=== PATIENT | female | born 2000 | race Caucasian/White ===

== ENCOUNTER 2020-07-04 16:19 | Outpatient (REF) | payer MEDICAID, SELFPAY | END 2020-07-04 16:20 | disposition home or self-care (01) | LOC: HO.LAB 16:19 | PROVIDERS: Visit Provider Internal Medicine | DX: Z20.828 Contact with and (suspected) exposure to other viral communicable diseases (principal) | CPT/HCPCS: C9803; U0003 ==

== ENCOUNTER 2020-10-02 21:34 | Emergency (ER) | payer MEDICAID, SELFPAY ==
--- NOTE | ~2020-10-02 | CT_ITS ---
EXAMINATION: CT ABDOMEN AND PELVIS WITHOUT CONTRAST CLINICAL INFORMATION: Right lower quadrant pain. Rule out appendicitis. COMPARISON: None TECHNIQUE: Multidetector volumetric imaging was performed from the superior aspect of the liver through the pubic symphysis. Sagittal and coronal reformatted images were obtained on the technologist's workstation. This CT examination was performed using dose optimization techniques as appropriate, variously including the following: *Automated exposure control *Adjustment of mA and/or kV according to patient size (this includes techniques or standardized protocols for targeted exams where dose is matched to indication/reason for exam; i.e. extremities or head) *Use of iterative reconstruction technique DLP: 285 mGy-cm FINDINGS: LUNG BASES: The visualized lung bases are unremarkable. LIVER, GALLBLADDER, AND BILIARY TREE: The liver is normal in size, shape, and attenuation. No focal hepatic lesion or biliary ductal dilatation is present. The gallbladder is unremarkable with no evidence of radiopaque gallstones, gallbladder wall thickening, or obvious pericholecystic inflammatory changes. PANCREAS: Unremarkable. SPLEEN: Unremarkable. ADRENAL GLANDS: Unremarkable. KIDNEYS AND URETERS: The kidneys are normal in size, shape, and attenuation. No hydronephrosis, hydroureter, or calculi seen. No perinephric stranding. BLADDER: Unremarkable. GASTROINTESTINAL TRACT: The stomach is unremarkable. Normal caliber small bowel. No obstruction. There is a normal appendix. Questionable mild wall thickening of the descending colon. No significant adjacent inflammatory change. The remainder of the colon is unremarkable. Small amount of pelvic free fluid. ABDOMINAL WALL: No significant hernia is appreciated. LYMPH NODES: Normal. VASCULAR: Unremarkable. PELVIC VISCERA: Anteverted uterus with IUD in place. No adnexal mass. OSSEOUS STRUCTURES: Unremarkable. CT/CT abdomen pelvis wo con IMPRESSION: Normal appendix. Questionable mild wall thickening of the descending colon which may simply be secondary to decompression. This could represent mild colitis.
[2020-10-02 22:02] VITALS: BP 125/70; PULSE 89; RESP 18; TEMP 36.2; O2SAT 99; BMI 20.7
[2020-10-02 22:44] LABS: UPreg QC Valid YES; Urine Pregnancy NEGATIVE (NEGATIVE)
[2020-10-02 22:47] LABS: Glucose Urine UA NEG (NEG); Leukocyte Esterase Urine NEG (NEG); Nitrite Urine NEG (NEG); Specific Gravity - Urine 1.025 (1.005-1.025); Urine Blood 2+ (NEG); Urine Ketones >=80 MG/DL (NEG); Urine Protein NEG (NEG-TRACE)
[2020-10-02 22:48] LABS: Appearance Urine CLEAR; Color Urine YELLOW
[2020-10-02 23:10] LABS: Squamous Epithelial Cell Urine TRACE /LPF; WBC Urine 0-2 /HPF (0-4)
--- NOTE | 2020-10-02 23:12 | ED.GENADULT ---
HPI - General Adult General Chief complaint: Abdominal Pain Stated complaint: Abdominal Pain Time Seen by Provider: 10/02/20 22:30 Source: patient Mode of arrival: ambulatory Limitations: no limitations History of Present Illness HPI narrative: 20-year-old female who presents to the emergency department for evaluation of abdominal pain and vaginal bleeding. The patient states that she had an IUD placed in May of 2020. She states that she bled for 3 months after the IV was placed and she stop the bleeding in August of 2020. She states however over the past 1 and half weeks the bleeding has returned. She states that she is using feminine pads and she changes them frequently and she believes she is bleeding heavily. She states that over the past 3-4 days she has developed severe cramping in her lower abdomen. She states the pain is worse in her right lower quadrant and does radiate to her right back. She states the pain is 8/10 at its worst. She did not take any pain medications for the pain. She has had associated nausea and vomiting. She denied fever, chills, chest pain, shortness of breath. She states that 4 days prior she was diagnosed with urinary tract infection and was started on antibiotic and for Pyridium. Related Data Allergies Allergy/AdvReac Type Severity Reaction Status Date / Time pollen extracts [POLLEN] Allergy Unknown UNKNOWN Verified 10/02/20 23:32 shrimp Allergy Rash Verified 10/02/20 22:01 Review of Systems Review of Systems: Yes all other systems are reviewed and are negative Neurologic: Reports Abnormal speech present [facility] Past Medical History [facility] Narrative: The patient has a history of asthma, anxiety and depression. She states that she also gets episodes of hypoglycemia and hypotension. She denies any surgical procedures. She denies tobacco, alcohol and drug use. Medical History (Updated 10/03/20 @ 02:22 by Aram Russell MD) Asthma Social History Social History Alcohol intake: never Smoking Status: Never smoker Use of substances other than those prescribed or required for medical reasons: No Advance Directives: No Advance Directives Information Provided: No Physical Exam Vital Signs: Vital Signs: Last Vital Signs Temp 98.8 F 10/03/20 01:16 Pulse 62 10/03/20 01:16 Resp 18 10/03/20 01:16 BP 99/45 L 10/03/20 01:16 Pulse Ox 100 10/03/20 01:16 Body Mass Index 20.7 Const: General: cooperative and healthy appearing Nutritional Appearance: thin Orientation/consciousness: oriented to person and oriented to place Limitations: no limitations HENMT: Head: Yes normal to inspection, Yes normocephalic and Yes atraumatic Ears: external ears normal General nose exam: Normal external nose present Face and sinus: Yes normal facial exam Mouth: Normal oral and palatal mucosa present Throat: Yes posterior oropharynx normal Eyes: Periorbital: periorbital findings normal Eyelids: Yes eyelids normal Conjunctivae: conjunctivae normal Sclerae: sclerae normal Corneas: corneas normal Pupils: Equal, round and reactive pupils present Direct Ophthalmoscopy: normal light reflex Neck: Neck: Yes full ROM, Yes no lymphadenopathy, Yes no meningeal signs, Yes trachea midline and Yes supple Chest: Chest palpation & inspection: normal inspection of the chest and normal palpation of entire chest wall Resp: Effort & Inspection: normal respiratory effort and able to speak in complete sentences Auscultation: clear to auscultation bilaterally Cardio: Rate: regular rate Rhythm: regular rhythm Heart sounds: S1 normal heart sound present, S2 normal heart sound present and no murmurs GI: Inspection: Yes normal to inspection Palpation (GI): Soft to palpation, Tenderness to palpation present (GI) in the RUQ (Moderate) and suprapubicly ([id number]), no guarding, not rigid and No hepatosplenomegaly present : General: Yes no CVA tenderness Back/Spine/Pelvis: Back: no CVA tenderness Cervical Spine: normal cervical lordosis Thoracic/Lumbar Spine: thoracic and lumbar spine normal to inspection Skin: Lesions: no lesions Rashes: no rashes Wounds: no wounds Neuro: General: oriented to person, oriented to place and no meningeal signs Cranial nerves: Yes Equal, round and reactive pupils present Cognition (Neuro): normal cognition Speech: Abnormal speech present Motor exam (neuro): 5/5 motor strength present throughout Extrem: General: Yes normal to inspection and Yes full ROM Psych: Appearance: well kempt Mental Status: mental status grossly normal Speech and movement: Normal speech and movement present Affect: normal affect Attitude: cooperative Thought process: Normal thought process present Thought content: Normal thought content present Course Course Course Narrative: 20-year-old female with an IUD placed May 2020 who presents emergency department for evaluation of vaginal bleeding times 1-1/2 weeks and right lower quadrant and suprapubic pain. Patient does have significant tenderness with palpation of her suprapubic area and right lower quadrant. Concerned the patient may have acute appendicitis or injury to uterus from the IUD. I did order laboratory evaluation as well as a CT scan of the abdomen pelvis with IV contrast. Patient's pain will be treated with Toradol 30 mg IV, her nausea will be treated with Zofran 4 mg IV. I also ordered a L of normal saline IV for the patient. 0219: The patient's laboratory evaluation revealed a slight elevation of WBC of 11.2 otherwise was unremarkable. Urinalysis revealed 2+ blood but the patient is menstruating. The patient's serum test was negative. COVID-19 was negative. The patient's CT scan of the abdomen pelvis with IV contrast did not reveal a clear etiology for the patient's pain. The patient has IUD is in place in the uterus. At this time, I do not have a clear cause for the patient's pain but I did discuss the possibility of early appendicitis with the patient. The patient initially got minimal relief with her Toradol and required morphine 2 mg IV and morphine 4 mg IV and is pain-free at the time of discharge. Repeat abdominal exam reveals no abdominal tenderness. The patient will be discharged home with instructions to return in 24 hours if her pain is worse in any way to re-evaluate her for possible appendicitis. Medical Decision Making Lab Data Result diagrams: 10/02/20 23:26 10/02/20 23:26 Labs: Lab Results 10/02/20 10/02/20 10/02/20 Range/Units 22:31 23:26 23:26 WBC 11.2 H (4.8-10.8) X10*3/uL RBC 4.40 (4.20-5.50) X10*6/uL Hgb 14.1 (12.0-16.0) g/dl Hct 42.9 (37-47) % MCV 97.5 (80-98) fL MCH 32.0 (27.0-33.0) pg MCHC 32.9 (31.0-35.0) g/dl RDW 12.4 (11.0-16.0) % Plt Count 195 (160-400) X10*3/uL MPV 11.5 (9.4-12.3) fL Immature Gran % (Auto) 0.2 (0.0-0.4) % Neut % (Auto) 74.1 H (45-73) % Lymph % (Auto) 18.1 L (20-40) % [place] % (Auto) 5.6 (2-11) % Eos % (Auto) 1.8 (0-4) % Baso % (Auto) 0.2 (0-2) % Lymph # (Auto) 2.0 (1.2-4.9) X10*3/uL [place] # (Auto) 0.6 (0.1-1.2) X10*3/uL Eos # (Auto) 0.2 (0.0-0.4) X10*3/uL Baso # (Auto) 0.0 (0.0-0.2) X10*3/uL Abs Immat Gran (auto) 0.02 (0.00-0.03) X10*3/uL Absolute Neuts (auto) 8.3 (2.0-8.3) X10*3/uL Absolute Nucleated RBC 0.000 (0.0-0.012) X10*3/uL Nucleated RBC % (auto) 0.0 (0.0-0.2) /100WBC PT 12.8 (10.8-13.0) SEC INR 1.1 (0.9-1.1) APTT 37.7 (24.1-38.0) SEC Sodium (135-145) mmol/L Potassium (3.3-5.1) mmol/L Chloride (96-108) mmol/L Carbon Dioxide (22-29) mmol/L Anion Gap (12-20) BUN (9-16) mg/dL Creatinine (0.5-1.4) mg/dL Estim Creat Clear Calc Estimated GFR Random Glucose (60-115) mg/dL Calcium (8.4-10.2) mg/dL Total Bilirubin (0.0-1.0) mg/dL AST (5-31) U/L ALT (0-31) U/L Alkaline Phosphatase (39-117) U/L Total Protein (6.5-8.0) g/dL Albumin (3.5-5.0) g/dL Lipase (8-78) U/L Urine Color YELLOW Urine Appearance CLEAR Urine pH 6.0 (5.0-8.0) Ur Specific [place] 1.025 (1.005-1.025) Urine Protein NEG (NEG-TRACE) MG/DL Urine Glucose (UA) NEG (NEG) MG/DL Urine Ketones >=80 (NEG) MG/DL Urine Blood 2+ H (NEG) Urine Nitrite NEG (NEG) Ur Leukocyte Esterase NEG (NEG) Urine RBC 1-4 (0) /HPF Urine WBC 0-2 (0-4) /HPF Ur Squamous Epith Cells TRACE /LPF Urine Bacteria NONE /LPF Urine Test NEGATIVE (NEGATIVE) COVID-19 ([facility]) (Negative) COVID-19 Clin Com 10/02/20 10/02/20 Range/Units 23:26 23:26 WBC (4.8-10.8) X10*3/uL RBC (4.20-5.50) X10*6/uL Hgb (12.0-16.0) g/dl Hct (37-47) % MCV (80-98) fL MCH (27.0-33.0) pg MCHC (31.0-35.0) g/dl RDW (11.0-16.0) % Plt Count (160-400) X10*3/uL MPV (9.4-12.3) fL Immature Gran % (Auto) (0.0-0.4) % Neut % (Auto) (45-73) % Lymph % (Auto) (20-40) % [place] % (Auto) (2-11) % Eos % (Auto) (0-4) % Baso % (Auto) (0-2) % Lymph # (Auto) (1.2-4.9) X10*3/uL [place] # (Auto) (0.1-1.2) X10*3/uL Eos # (Auto) (0.0-0.4) X10*3/uL Baso # (Auto) (0.0-0.2) X10*3/uL Abs Immat Gran (auto) (0.00-0.03) X10*3/uL Absolute Neuts (auto) (2.0-8.3) X10*3/uL Absolute Nucleated RBC (0.0-0.012) X10*3/uL Nucleated RBC % (auto) (0.0-0.2) /100WBC PT (10.8-13.0) SEC INR (0.9-1.1) APTT (24.1-38.0) SEC Sodium 141 (135-145) mmol/L Potassium 3.9 (3.3-5.1) mmol/L Chloride 108 (96-108) mmol/L Carbon Dioxide 21 L (22-29) mmol/L Anion Gap 16 (12-20) BUN 9 (9-16) mg/dL Creatinine 0.70 (0.5-1.4) mg/dL Estim Creat Clear Calc 78.1 Estimated GFR > 60 Random Glucose 68 (60-115) mg/dL Calcium 8.9 (8.4-10.2) mg/dL Total Bilirubin 0.7 (0.0-1.0) mg/dL AST 18 (5-31) U/L ALT 13 (0-31) U/L Alkaline Phosphatase 58 (39-117) U/L Total Protein 7.5 (6.5-8.0) g/dL Albumin 4.8 (3.5-5.0) g/dL Lipase 8 (8-78) U/L Urine Color Urine Appearance Urine pH (5.0-8.0) Ur Specific [place] (1.005-1.025) Urine Protein (NEG-TRACE) MG/DL Urine Glucose (UA) (NEG) MG/DL Urine Ketones (NEG) MG/DL Urine Blood (NEG) Urine Nitrite (NEG) Ur Leukocyte Esterase (NEG) Urine RBC (0) /HPF Urine WBC (0-4) /HPF Ur Squamous Epith Cells /LPF Urine Bacteria /LPF Urine Test (NEGATIVE) COVID-19 ([facility]) Negative (Negative) COVID-19 Clin Com See Note Discharge Plan Discharge Clinical Impression: Abdominal pain Qualifiers: Abdominal location: right lower quadrant Qualified Code(s): R10.31 - Right lower quadrant pain Patient Disposition: Home, Self-Care Instructions: Acute Abdominal Pain (ED) Additional Instructions: Your laboratory evaluation was unremarkable. Your urine test was negative. Your COVID-19 test was negative[address] The CT scan of your abdomen pelvis with IV contrast revealed that the IUD is in your uterus and there is no injury to uterus noted. There was no clear cause for the abdominal pain noted on the CT scan which is reassuring. Sometimes early appendicitis is difficult to diagnose and it is still possible that you might have appendicitis. If your pain is not completely resolved in 24 hours then you should return to the emergency department so that we can re-evaluate you for possible appendicitis. Take ibuprofen 200 mg pills, 3 pills every 6 hours as needed for pain. Take Tylenol (acetaminophen) 500 mg pills, 2 pills every 4 to 6 hours as needed for pain. Follow-up with your doctor in 2 days. Please return to the emergency department if your symptoms get worse or if you develop any symptoms that are concerning to you.
[2020-10-02 23:28] VITALS: BP 114/60; PULSE 66; RESP 18; TEMP 37.1; O2SAT 100
[2020-10-02] MEDS: 0.9 % Sodium Chloride 1,000 ML 999 ML IV (23:32)
[2020-10-02] MEDS: ondansetron HCL 4 MG/2 ML VIAL IVPUSH (23:32)
[2020-10-02 23:33] LABS: MANUAL DIFF FLAG NO
[2020-10-02] MEDS: Ketorolac Tromethamine 30 MG/ML VIAL IVPUSH (23:33)
[2020-10-02 23:36] LABS: Basophils Percent Auto 0.2 % (0-2); Eosinophils Absolute Auto 0.2 X10*3/uL (0.0-0.4); Eosinophils Percent Auto 1.8 % (0-4); Hematocrit 42.9 % (37-47); Hemoglobin 14.1 g/dl (12.0-16.0); Imm Gran Abs Auto 0.02 X10*3/uL (0.00-0.03); Imm Gran Pct Auto 0.2 % (0.0-0.4); Lymphocytes Percent Auto 18.1 % (20-40); Mean Corpuscular HGB Conc 32.9 g/dl (31.0-35.0); Mean Corpuscular Volume 97.5 fL (80-98); Mean Platelet Volume 11.5 fL (9.4-12.3); Monocytes Absolute Auto 0.6 X10*3/uL (0.1-1.2); Monocytes Percent Auto 5.6 % (2-11); Neutrophils Absolute Auto 8.3 X10*3/uL (2.0-8.3); Neutrophils Percent Auto 74.1 % (45-73); Platelet Count 195 X10*3/uL (160-400); Red Cell Distribution Width 12.4 % (11.0-16.0); White Blood Count 11.2 X10*3/uL (4.8-10.8)
[2020-10-03] LABS: INTERNATIONAL NORM RATIO 1.1 (0.9-1.1); Prothrombin Time 12.8 SEC (10.8-13.0)
[2020-10-03 00:02] LABS: COVID-19 Test Negative (Negative)
[2020-10-03 00:03] LABS: Partial Thromboplastin Time 37.7 SEC (24.1-38.0)
[2020-10-03] MEDS: Morphine Sulfate 4 MG/ML CARTRIDGE 2 MG IVPUSH (00:21)
[2020-10-03 00:40] LABS: Alanine Aminotransferase 13 U/L (0-31); Albumin Level 4.8 g/dL (3.5-5.0); Alkaline Phosphatase 58 U/L (39-117); Anion Gap 16 (12-20); Aspartate Amino Transferase 18 U/L (5-31); Bilirubin Total 0.7 mg/dL (0.0-1.0); Blood Urea Nitrogen 9 mg/dL (9-16); Calcium 8.9 mg/dL (8.4-10.2); Carbon Dioxide 21 mmol/L (22-29); Chloride 108 mmol/L (96-108); Creatinine Clr Calc Pharmacy 78.1; Estimated Glomerular Filt Rate > 60; Glucose Random 68 mg/dL (60-115); Lipase 8 U/L (8-78); Potassium 3.9 mmol/L (3.3-5.1); Sodium 141 mmol/L (135-145); Total Protein 7.5 g/dL (6.5-8.0)
[2020-10-03 01:16] VITALS: BP 99/45; PULSE 62; RESP 18; TEMP 37.1; O2SAT 100
[2020-10-03] MEDS: Morphine Sulfate 4 MG/ML CARTRIDGE IVPUSH (01:20)
== END 2020-10-03 02:26 | disposition home or self-care (01) ==
PROVIDERS: Emergency Provider Emergency Medicine Emergency Medical Services
DX: R10.31 Right lower quadrant pain (principal); Z20.822 Contact with and (suspected) exposure to COVID-19; N93.9 Abnormal uterine and vaginal bleeding, unspecified
CPT/HCPCS: 36415; 74176; 80053; 81001; 81025; 83690; 85025; 85610; 85730; 87635; 96361; 96374; 96375; 96376; 99284; J1885; J2270; J2405

== ENCOUNTER 2022-11-27 16:48 | Emergency (ER) | payer MEDICAID, SELFPAY ==
[2022-11-27 17:10] VITALS: BP 121/68; PULSE 73; RESP 18; TEMP 36.6; O2SAT 98; BMI 21.6
--- NOTE | 2022-11-27 17:12 | ED.NAVMDI ---
HPI - Nausea/Vomiting/Diarrhea General Chief complaint: Nausea/Vomiting/Diarrhea Stated complaint: vomiting edc 12/2 Related Data Allergies Allergy/AdvReac Type Severity Reaction Status Date / Time pollen extracts [POLLEN] Allergy Unknown UNKNOWN Verified 11/27/22 17:10 shrimp Allergy Rash Verified 11/27/22 17:10 [facility] Past Medical History Medical History (Updated 12/06/22 @ 00:00 by Background Daemon) Asthma Social History Social History Alcohol intake: never Advance Directives: No Advance Directives Information Provided: No Physical Exam Vital Signs: Vital Signs: Last Vital Signs Temp 98 F 11/27/22 17:10 Pulse 73 11/27/22 17:10 Resp 18 11/27/22 17:10 BP 121/68 11/27/22 17:10 Pulse Ox 98 11/27/22 17:10 O2 Del Method Room Air 11/27/22 17:10 BMI result Body Mass Index 21.6 Course Course Course Narrative: rme Seven weeks , vomiting everything today, no abdominal pain, no bleeding no pelvic pain no diarrhea Basic labs ordered, evaluation in the department to follow Discharge Plan Discharge Clinical Impression: , Vomiting Patient Disposition: Elopement Discharge Date/Time: 11/27/22 18:20
== END 2022-11-27 18:20 | disposition left against medical advice (07) ==
PROVIDERS: Emergency Provider Emergency Medicine
DX: O21.9 Vomiting of pregnancy, unspecified (principal); Z3A.00 Weeks of gestation of pregnancy not specified
CPT/HCPCS: 99281

== ENCOUNTER 2024-09-29 13:07 | Emergency (ER) | payer MEDICAID, SELFPAY ==
[2024-09-29] VITALS (8 sets, daily range): BP systolic 109–124; BP diastolic 62–82; PULSE 57–81; RESP 13–20; TEMP 36.8–36.9; O2SAT 95–98; BMI 23.2
--- NOTE | 2024-09-29 13:09 | ECG_ITS ---
Test Reason : CP Blood Pressure : */* mmHG Vent. Rate : 65 BPM Atrial Rate : 65 BPM P-R Int : 114 ms QRS Dur : 84 ms QT Int : 374 ms P-R-T Axes : 31 43 20 degrees QTcB Int : 388 ms Sinus rhythm with marked sinus arrhythmia Otherwise normal ECG When compared with ECG of 04-Dec-2013 19:37, PREVIOUS ECG IS PRESENT Referred By: Generic ED Physician Electronically Signed By: REBA FARRELL MD
--- NOTE | 2024-09-29 13:35 | ED.GENADULT ---
HPI - General Adult General Chief complaint: Chest Pain Stated complaint: CP JAW PAIN Time Seen by Provider: 09/29/24 15:12 Source: patient and other (Significant other, Felix) Mode of arrival: ambulatory Limitations: no limitations History of Present Illness ED Provider: Dr. Aram Russell HPI narrative: 24-year-old female , history of gestational diabetes/preeclampsia 15 months , still breast-feeding who presents emergency department for evaluation of palpitations, intermittent chest pain, high blood pressure readings at home times weeks. Patient states that after she delivered her baby she was on labetalol 200 mg q.12 hours but when this medication ran out she never got a refill of her prescription. Patient states that she has been checking her blood pressures at home and her blood pressure can sometimes be as high as 142/110 and sometimes as low as 92/60. She states she checks these readings 3 times a day and she was not have any symptoms when she checks these readings. She also states that she has been having palpitations where she feels like her heart is beating rapidly and irregularly. She states that occasionally when she has a palpitations she will have pain in her left anterior chest that radiates to her neck, back and jaw. She states she will have associated hot flashes, nausea and sweatiness with the palpitations. She denied lightheadedness or dizziness. She was had no syncopal episodes associated with her palpitations. Patient states that yesterday she went to [facility] and was in the emergency department but left after 6 hours. She was called and advised to follow-up with [facility]. At [facility] patient had an incomplete bundle-branch block, was given aspirin 324 mg orally and sent to the emergency department for further evaluation. At the time my evaluation, the patient was pain-free, she has no complaints. Related Data Previous Rx's ?Medication ?Instructions ?Recorded labetalol 200 mg tablet 200 mg PO BID 90 days #180 tabs 09/29/24 Allergies Allergy/AdvReac Type Severity Reaction Status Date / Time pollen extracts [POLLEN] Allergy Unknown UNKNOWN Verified 09/29/24 13:39 latex Allergy Rash Verified 09/29/24 13:39 shellfish derived [shellfish] Allergy Anaphylaxis Verified 09/29/24 13:39 shrimp Allergy Rash Verified 09/29/24 13:39 Review of Systems Review of Systems: Yes all other systems are reviewed and are negative [facility] Past Medical History Medical History (Updated 09/29/24 @ 18:33 by Aram Russell MD) Asthma Social History Social History Alcohol intake: never Advance Directives: No Advance Directives Information Provided: No Do you have a plan to hurt others: No Plan Physical Exam ED Vital Signs: Vital Signs - 24 hr 09/29/24 13:33 09/29/24 16:19 09/29/24 16:22 Temperature 98.2 F Pulse Rate 64 60 60 Respiratory Rate 18 13 Blood Pressure 118/82 123/65 123/65 Pulse Oximetry 98 Oxygen Delivery Method Room Air 09/29/24 16:23 09/29/24 16:23 Temperature Pulse Rate 65 60 Respiratory Rate Blood Pressure 113/62 114/68 Pulse Oximetry Oxygen Delivery Method BMI result Body Mass Index 23.2 Documented vital signs here in the emergency department revealed no elevated blood pressures, normal heart rates. Exam: General: Awake, alert in no distress Head: Normocephalic, atraumatic EENT: PERRL, Lids normal, sclera normal, conjunctiva normal, nose normal , ears normal, throat without erythema or exudates Neck: Supple, no adenopathy Lung: breath sounds symmetric, no wheezing, rales or rhonchi Chest: symmetric movement, nontender Heart: regular rate and rhythm, normal S1, S2 no murmurs or rubs Abdomen: soft, non-tender, nondistended, normal bowel sounds Back: no vertebral tenderness, no CVAT Extremities: no deformities, moves all extremities symmetrically Neuro: Awake, alert, oriented, normal speech, cranial nerves intact, moves all extremities symmetrically Psych: Pleasant, cooperative Course Course Course Narrative: RME performed by Kelsy Carlos PA-C. Patient is a 24 year old assigned female at presenting to the emergency department with fluctuating blood pressure. Patient states she has been having issues with spiking and tanking blood pressure. Patient states that she was seen at the clinic today and told her EKG looked normal so she needed to come to the ER. Detailed physical exam and review of systems are deferred to the hospital corpsman. EKG, labs, imaging, and swabs ordered. Patient placed back in the waiting room pending room availability and results. Medical Decision Making Medical Decision Making MDM Narrative: 24-year-old female , history of gestational diabetes/preeclampsia 15 months , still breast-feeding who presents emergency department for evaluation of palpitations, intermittent chest pain, high blood pressure readings at home times weeks. Patient was initially treated with labetalol 200 mg b.i.d. but never got a refill he was medications. She was documented elevated blood pressures at home he was high as 142/110 which is also documented normal blood pressures. Patient has been experiencing palpitations not related to her elevated blood pressure readings. Patient was also been having anterior chest pain with pain radiating to her neck, jaw and back. Patient went to [facility] ED yesterday but was not seen but it was contacted today and advised to follow up with [facility]. Given the patient's symptoms, and her EKG which revealed an incomplete bundle-branch block, she was referred to the emergency department for evaluation. At the time of evaluation she had no elevated blood pressure readings or elevated heart rate. She was asymptomatic. Physical examination was normal. Differential diagnosis: ?Includes but is not limited to essential hypertension, palpitations, myocardial infarction, myocardial ischemia, electrolyte abnormalities, anemia Course: 16:49 My interpretation the patient's laboratory evaluation is as follows: CBC was normal. Chloride elevated 112. Bicarb low 21. High sensitive troponin I was below detectable limits. COVID-19, RSV and influenza were negative. Beta-hCG was negative. At this time, I believe that the patient may have essential hypertension verses gestational hypertension. Patient is 15 months and I do not think this is related to her preeclampsia. The patient will be started back on labetalol 200 mg q.12 hours, I did give her a 90 day supply. She was to check your blood pressures 3 times a week for the next 2 weeks and follow up with her PCP to discuss further management of possible essential hypertension Patient will need a outpatient workup for her palpitations and I did discuss this with her. The patient will be referred back to her PCP for management of her hypertension and for outpatient workup to possibly include 72 hour Holter monitor and echocardiogram. Patient was given printed and verbal instructions and discharged home. Admission/Observation Consideration of admission/observation: Escalation of care including admission/observation considered (Yes) Lab Data MDM Lab Attestation statement: I reviewed the patient's lab results. 09/29/24 13:46 09/29/24 13:46 Labs: Lab Results 09/29/24 Range/Units 13:46 WBC 8.2 (4.8-10.8) X10*3/uL RBC 4.52 (4.20-5.50) X10*6/uL Hgb 14.0 (12.0-16.0) g/dl Hct 42.7 (37.0-47.0) % MCV 94.5 (80.0-98.0) fL MCH 31.0 (27.0-33.0) pg MCHC 32.8 (31.0-35.0) g/dl RDW 13.2 (11.0-16.0) % Plt Count 216 (160-400) X10*3/uL MPV 11.3 (9.4-12.3) fL Immature Gran % (Auto) 0.4 (0.0-0.4) % Neut % (Auto) 67.1 (45-73) % Lymph % (Auto) 22.0 (20-40) % Lipscomb % (Auto) 6.1 (2-11) % Eos % (Auto) 4.0 (0-4) % Baso % (Auto) 0.4 (0-2) % Lymph # (Auto) 1.8 (1.2-4.9) X10*3/uL Lipscomb # (Auto) 0.5 (0.1-1.2) X10*3/uL Eos # (Auto) 0.3 (0.0-0.4) X10*3/uL Baso # (Auto) 0.0 (0.0-0.2) X10*3/uL Abs Immat Gran (auto) 0.03 (0.00-0.03) X10*3/uL Absolute Neuts (auto) 5.5 (2.0-8.3) x10*3/uL Absolute Nucleated RBC 0.000 (0.0-0.012) X10*3/uL Nucleated RBC % (auto) 0.0 (0.0-0.2) /100WBC Sodium 141 (135-145) mmol/L Potassium 4.2 (3.3-5.1) mmol/L Chloride 112 H (96-108) mmol/L Carbon Dioxide 21 L (22-29) mmol/L Anion Gap 12 (12-20) BUN 11 (9-16) mg/dL Creatinine 0.65 (0.5-1.4) mg/dL Estim Creat Clear Calc 94.1 Estimated GFR > 60 Random Glucose 88 (60-115) mg/dL Calcium 8.8 (8.4-10.2) mg/dL Magnesium 2.1 (1.6-2.6) mg/dL Total Bilirubin 0.4 (0.0-1.0) mg/dL AST 18 (5-31) U/L ALT 14 (0-31) U/L Alkaline Phosphatase 102 (39-117) U/L Troponin I High Sens < 2.7 (<3.5-17.0) ng/L Total Protein 7.8 (6.5-8.0) g/dL Albumin 4.4 (3.5-5.0) g/dL Beta HCG, Quant < 2 mIU/mL Influenza Type A (PCR) NEGATIVE (Negative) Influenza Type B (PCR) NEGATIVE (Negative) RSV RNA Qual (PCR) NEGATIVE (Negative) SARS-CoV-2 RNA (RT-PCR) NEGATIVE (Negative) Independent Interpretation I performed an independent interpretation of an: EKG Interpretation: My independent interpretation patient's 12 EKG done at 13:16 hours is as follows: Normal sinus rhythm rate of 65, normal IA interval, QRS duration QTC interval, no ST segment elevation, no ST segment depression, no significant T-wave abnormalities compared to previous EKG dated 12/04/2013 at 19:37 hours, the patient did have a right bundle-branch block which is now resolved. Independent Historian Clinical information obtained from an independent historian. History obtained from or confirmed by: Spouse (Significant other) Prescription Management I considered prescription management with: Other (Antihypertensive, labetalol 200 mg q.12 hours) Chronic Conditions Patient?s care impacted by: Hypertension Discharge Plan Discharge Clinical Impression: Hypertension, Heart palpitations Patient Disposition: Home, Self-Care Instructions: Heart Palpitations (ED) Additional Instructions: Your blood work was normal. Your blood test was negative. Your high sensitive troponin (marker of heart damage) was below detectable limits suggesting that you do not have any heart damage your heart attack as the cause of your chest pain. Based on your description of your high blood pressure readings at home, I am going to restart you on labetalol 200 mg twice a day. I want you to stay on this medication for 3 months and then discuss whether or not you can stop this medication with your doctor. I want you to take your blood pressure readings on Mondays, Wednesdays and Tuesday mornings, write these blood pressure readings down, do not repeat them again throughout the day, and do not worry about any high blood pressure readings. The goal of documenting your blood pressure is to show your doctor whether or not you have high blood pressure while your on these medications. I want you to follow up with your doctor in 2 weeks to review these blood pressure readings with your doctor to determine if you need to change your blood pressure medication. Your EKG today was unremarkable with no significant abnormalities. In 2013 you did have a incomplete right bundle-branch block-this is not a significant finding and sometimes you can go in and out of this and this is normal., an incomplete right bundle-branch block is not related to your chest pain or to your palpitations. In order to figure out your palpitations, your doctor needs to order a Holter monitor for 48-72 hours. This is a monitor that will record your heart rate and you also will have a diary to write down when you feel the palpitations to see if you have abnormal heart rates while you are feeling the symptoms. Your doctor may also want to order an echocardiogram (ultrasound of your heart) to further evaluate you for possible palpitations. Call your doctor on Tuesday to make a follow-up appointment within 2 days to talk about your palpitations, to get a Holter monitor and possibly an echocardiogram as an outpatient. You can also discuss the plan to treat your high blood pressure with your doctor at this follow up with visit as well. Follow-up with your doctor in 2 days. Please return to the emergency department if your symptoms get worse or if you develop any symptoms that are concerning to you. Prescriptions: New labetalol 200 mg tablet 200 mg PO BID 90 Days Qty: 180 0RF Print Language: Citizen [place]
[2024-09-29 13:50] LABS: MANUAL DIFF FLAG NO
[2024-09-29 14:03] LABS: Basophils Percent Auto 0.4 % (0-2); Eosinophils Absolute Auto 0.3 X10*3/uL (0.0-0.4); Hematocrit 42.7 % (37.0-47.0); Imm Gran Abs Auto 0.03 X10*3/uL (0.00-0.03); Imm Gran Pct Auto 0.4 % (0.0-0.4); Lymphocytes Absolute Auto 1.8 X10*3/uL (1.2-4.9); Mean Corpuscular HGB Conc 32.8 g/dl (31.0-35.0); Mean Corpuscular Volume 94.5 fL (80.0-98.0); Mean Platelet Volume 11.3 fL (9.4-12.3); Monocytes Absolute Auto 0.5 X10*3/uL (0.1-1.2); Monocytes Percent Auto 6.1 % (2-11); Neutrophils Absolute Auto 5.5 x10*3/uL (2.0-8.3); Neutrophils Percent Auto 67.1 % (45-73); Platelet Count 216 X10*3/uL (160-400); Red Blood Count 4.52 X10*6/uL (4.20-5.50); Red Cell Distribution Width 13.2 % (11.0-16.0); White Blood Count 8.2 X10*3/uL (4.8-10.8)
[2024-09-29 14:18] LABS: Troponin-I High Sensitivity < 2.7 ng/L (<3.5-17.0)
[2024-09-29 14:22] LABS: Alanine Aminotransferase 14 U/L (0-31); Albumin Level 4.4 g/dL (3.5-5.0); Anion Gap 12 (12-20); Aspartate Amino Transferase 18 U/L (5-31); Bilirubin Total 0.4 mg/dL (0.0-1.0); Blood Urea Nitrogen 11 mg/dL (9-16); Calcium 8.8 mg/dL (8.4-10.2); Carbon Dioxide 21 mmol/L (22-29); Chloride 112 mmol/L (96-108); Creatinine Clr Calc Pharmacy 94.1; Estimated Glomerular Filt Rate > 60; Glucose Random 88 mg/dL (60-115); HCG Quantitative < 2 mIU/mL; Magnesium 2.1 mg/dL (1.6-2.6); Potassium 4.2 mmol/L (3.3-5.1); Sodium 141 mmol/L (135-145); Total Protein 7.8 g/dL (6.5-8.0)
[2024-09-29 14:30] LABS: Influenza A PCR NEGATIVE (Negative); Influenza B PCR NEGATIVE (Negative); Resp Syncy Virus RNA Qual PCR NEGATIVE (Negative); SARS COV2 PCR INHOUSE NEGATIVE (Negative)
[2024-09-29 14:53] LABS: Alkaline Phosphatase 102 U/L (39-117)
--- OUTSIDE RECORDS SUMMARY | 2024-09-29 16:38 | XMS_ITS | Encounter Summary ---
Author Organization [employer] Address [address] [facility] [address] [place] [address] Care Team Providers Care Rn Acute Name Role Phone Fannie Ferrell JASON Primary Care Provider [phone] Encounter Details Date Type Department Care Team ([facility] st Contact Info) Description 09/29/2024 Telephone [facility] MEDICINE [address] [place] [address] Naa Kern, RN [address] [place] [address] Social History Tobacco Use Types Packs/Day Years Used Date Smoking Tobacco: Never Passive Smoke Exposure: Never Smokeless Tobacco: Never Alcohol Use Standard Drinks/Week Comments Never 0 (1 standard drink = 0.6 oz pur e alcohol) Depression Answer Date Recorded Patient Health Questionnaire-9 Score 0 10/19/2023 Patient Health Questionnaire-9 Score 0 10/19/2023 Last PHQ-9: Questionnaire Data Not on file 0 10/19/2023 Housing Stability Answer Date Recorded What is your housing situation today? I have antwan segal 05/31/[address] you li ve. Do you have problems with any of the following? None of the above 05/31/2023 Food Insecurity Answer Date Recorded Within the past 12 months, y ou worried that your food would run out before you got money to buy more: Never True 05/31/2023 Within the past 12 months,th e food you bought just didn't last and you didn't have enough money to get more: Never True Transportation Answer Date Recorded In the past 12 months, has l ack of transportation kept you from medical appts, meetings, work or from getting things needed for daily living? No 08/04/2023 Utilities Answer Date Recorded In the past 12 months, has t he electric, gas, oil or water company threatened to shut off services in your home? No 05/31/2023 Depression Answer Date Recorded Patient Health Questionnaire-2 Score 0 10/19/2023 Comments No Sex and Gender Information Value Date Recorded Sex Assigned at Female 06/14/2022 10:16 AM EDT Legal Sex Female 10:16 AM EDT Gender Identity Female 06/14/2022 10:16 AM EDT Sexual Orientation Straight 06/14/2022 10 :16 AM EDT documented as of this encounter Plan of Treatment Not on file documented as of this encounter Visit Diagnoses Not on filedocumented in this encounter Additional Health Concerns Assessment Noted Time PHQ-9 Depression Total Score: 0 10/19/19 24 3:23 PM EST documented as of this encounter Care Teams Rn Acute Relationship Specialty Start Date End Date Fannie Ferrell FNP [address] [place] [id number] PCP - General Family Medicine 01/21/22 documented as of this encounter
--- OUTSIDE RECORDS SUMMARY | 2024-09-29 16:38 | XMS_ITS | Encounter Summary ---
Author Organization [employer] Address [address] [facility] [address] [place] [address] Care Team Providers Care Certified Medical Biller Name Role Phone Fannie Ferrell Primary Care Provider [phone] Reason for Visit * Reason Onset Date Comments Nurse Triage 01/31/2024 Encounter Details Date Type Department Care Team ([facility] st Contact Info) Description 01/31/2024 Telephone [facility] MEDICINE [address] [place] [address] Fannie Ferrell FNP [address] [place], [place] [phone] Nurse Triage Social History Tobacco Use Types Packs/Day Years Used Date Smoking Tobacco: Never Smokeless Tobacco: Never Alcohol Use Standard Drinks/Week Comments Never 0 (1 standard drink = 0.6 oz pur e alcohol) Depression Answer Date Recorded Patient Health Questionnaire-9 Score 0 10/19/2023 Patient Health Questionnaire-9 Score 0 10/19/2023 Last PHQ-9: Questionnaire Data Not on file 0 10/19/2023 Housing Stability Answer Date Recorded What is your housing situation today? I have antwanangie segal 05/31/[address] you [...] AM EDT documented as of this encounter Miscellaneous Notes * Telephone Encounter - Caterina Jaime RN - 01/31/2024 12:58 PM EDT Triage call Pt reports moved recently, and in the process lost BP machine. Pt had been monitoring BP and taking medication for HTN. Pt has had recent concerns about some heart palpatations with transient chest pain. Pt is not having these symptoms at time of call. Pt would like to be seen by provider and check BP and obtain another blood pressure machine. Pt is advised to come to [facility] where Provider can check BP and assess Pt status. [facility] hours given today open till 8pm, closed Wed, open Th-F 830am -400pm. Pt agreed with disposition and home care. When partner comes home to take care of baby Ptwill come to [facility]. Protocol Used: Heart Rate and Heartbeat Questions (Adult) Protocol-Based Disposition: Home Care Positive Triage Question: * Palpitations * All higher-acuity triage questions were negative Care Advice Discussed: * Reassurance and Education - Extra Heartbeats * Reassurance and Education - Extra Heartbeats and Palpitations * Health Basics * Avoid Caffeine * Reasons To Call Back - Chest pain, lightheadedness, or difficulty breathing occurs - Heart beating more than 140 beats / minute - More than 3 extra or skipped beats / minute - You become worse * Telephone Encounter - You Kimball - 01/31/2024 12:36 PM EDT Symptom: Chest Pain - Adult Outcome: Transfer to a nurse or provider NOW! Reason: Trouble breathing The caller accepted this outcome documented in this encounter Plan of Treatment Not on file documented as of this encounter Visit Diagnoses Not on filedocumented in this encounter Additional Health Concerns Assessment Noted Time PHQ-9 Depression Total Score: 0 10/19/19 24 3:23 PM EST documented as of this encounter Care Teams Certified Medical Biller Relationship Specialty Start Date End Date Fannie Ferrell FNP [address] [place] [id number] PCP - General Family Medicine 01/21/22 Jacey Jane Oxygen Equipment Preparer 08/22/23 06/28/24 documented as of this encounter
--- OUTSIDE RECORDS SUMMARY | 2024-09-29 16:38 | XMS_ITS | Encounter Summary ---
Author Organization [employer] Address [address] [facility] [address] [place] [address] Care Team Providers Care Manager Of Compliance Name Role Phone Fannie Ferrell Primary Care Provider [phone] Reason for Referral * Consultation (Routine) - Closed Specialty Diagnoses / Procedures Referred By Mariana stanford Referred To Contact Optometry Diagnoses Healthcare maintenance Fannie Ferrell FNP [address] [place] [address] Phone: tel: fax: [facility] OPTOMETRY [address] [place] [address] Phone: tel: fax: Referral ID Status Reason Start Date Expiration Date V isits Requested Visits Authorized [id number] Closed Consult and Treat 12/13/2023 12/12/2024 1 1 Reason for Visit * Reason Onset Date Comments Referral 12/12/2023 Encounter Details Date Type Department Care Team (Late st Contact Info) Description 12/12/2023 Telephone [facility] MEDICINE [address] [place] [address] Fannie Ferrell FNP [address] [place] [address] Referral Social History Tobacco Use Types Packs/Day Years [...] t he electric, gas, oil or water [email or web address] threatened to shut off services in your [...] encounter Miscellaneous Notes * Telephone Encounter - Wing Vaishnavi RN - 12/13/2023 12:51 PM EDT Tc to pt to inform pt about referral being placed and to ask if she has any current vision issues. Unable to reach pt. Left message for pt to call back. * Telephone Encounter - JASON Harper - 12/13/2023 12:22 PM EDT Please call pt to let her know that I placed referral to [facility], but they currently have a wait list that is scheduling in fall or winter of 2023. If she has any current vision concerns please have her call to be triaged sooner ,Thank you. * Telephone Encounter - Westley Anderson - 12/12/2023 12:14 PM EDT TC from pt requesting new referral: Address: [address] [place] [address] Facility Name: [facility] Type of Specialist: Bark Scaler documented in this encounter Plan of Treatment Scheduled Referrals Name Type Priority Associated Diagnoses Orde r Schedule Referral to [facility] Outpatient Referral Routine Healthcare maintenance Expected: 12/13/2023 (Approximate), Expires: 12/12/2024 documented as of this encounter Visit Diagnoses Diagnosis Healthcare maintenance- Primary documented in this encounter Additional Health Concerns Assessment Noted Time PHQ-9 Depression Total Score: 0 10/19/19 24 3:23 PM EST documented as of this encounter Care Teams Manager Of Compliance Relationship Specialty Start Date End Date Fannie Ferrell FNP [address] [place] [id number] PCP - General Family Medicine 01/21/22 Jacey Jane Insurance Office Supervisor 08/22/23 06/28/24 documented as of this encounter
--- OUTSIDE RECORDS SUMMARY | 2024-09-29 16:38 | XMS_ITS | Encounter Summary ---
Author Organization [employer] Address [address] [facility] 7[address] [place] [address] Care Team Providers Care Teenage Babysitter Name Role Phone Fannie Ferrell JASON Primary Care Provider [phone] Reason for Referral * Consultation (Routine) - Pending Review Specialty Diagnoses / Procedures Referred By Mariana stanford Referred To Contact Cardiology Diagnoses Precordial pain Palpitations Reynold Aburto MD [address] [place] [address] Phone: tel: fax: Referral ID Status Reason Start Date Expiration Date Visits Requested Visits Authorized [id number] Pending Review Specialty Services Required 09/29/2024 09/29/2025 1 1 Reason for Visit * Reason Comments Walk-In high bp palpitations x3 weeks Encounter Details Date Type Department Care Team (Late st Contact Info) Description 09/29/2024 12:00 PM EST Office Visit [facility] [address] [place], [place] [phone] Reynold Aburto MD [address] [place], [place] [phone] Precordial pain (Primary Dx); Palpitations Social History Tobacco Use Types Packs/Day Years Used Date Smoking Tobacco: Never Passive Smoke Exposure: Never Smokeless Tobacco: Never Tobacco Cessation:Counseling Given: Not Answered Alcohol Use Standard Drinks/Week Comments Never 0 [...] AM EDT documented as of this encounter Last Filed Vital Signs Vital Sign Reading Time Taken Comments Blood Pressure 134/83 09/29/2024 12:10 PM EST Pulse 83 09/29/2024 12:10 PM EST Temperature 36.6 ??C (97.9 ??F) 09/29/2024 12:[address] Respiratory Rate 20 09/29/2024 12:10 PM EST Oxygen Saturation 97% 09/29/2024 12:10 PM EST Inhaled Oxygen Concentration - - Weight 50.6 kg (111 lb 9.6 oz) 09/29/2024 12:10 PM EST Height 144.8 cm (4' 9 ) 09/29/2024 12:10 PM EST Body Mass Index 24.15 09/29/2024 12:10 PM EST documented in this encounter Progress Notes * Reynold Kimball MD - 09/29/2024 12:00 PM EST SUBJECTIVE Aj Ho is a 24 y.o. female who presents for Walk-In (high bp palpitations x3 weeks). Chest Pain This is a new problem. The current episode started in the past 7 days. The problem occurs intermittently. The pain is at a severity of 5/10. The quality of the pain is described as pressure. The painradiates to the precordial region, left jaw and left shoulder. Associated symptoms include palpitations and shortness of breath. Pertinent negatives include no abdominal pain, cough, fever or headaches. She has tried nothing for the symptoms. There are no known risk factors. Review of Systems Constitutional: Negative for fever. HENT: Negative for sore throat. Respiratory: Positive for shortness of breath. Negative for cough. Cardiovascular: Positive for chest pain and palpitations. Gastrointestinal: Negative for abdominal pain. Neurological: Negative for headaches. Allergies Allergen Reactions Latex Other reaction(s): Acne Shellfish-Derived Products Hives OBJECTIVE Vitals: 09/29/24 1210 BP: 134/83 BP Location: Right arm Patient Position: Sitting BP Cuff Size: Adult Pulse: 83 Resp: 20 Temp: 97.9 ??F (36.6 ??C) TempSrc: Temporal SpO2: 97% Weight: 111 lb 9.6 oz (50.6 kg) Height: 4' 9 (1.448 m) Physical Exam Vitals reviewed. Constitutional: Appearance: Normal appearance. HENT: Head: Normocephalic and atraumatic. Right Ear: External ear normal. Left Ear: External ear normal. Nose: Nose normal. Mouth/Throat: Mouth: Mucous membranes are moist. Eyes: Conjunctiva/sclera: Conjunctivae normal. Cardiovascular: Rate and Rhythm: Normal rate and regular rhythm. Pulmonary: Effort: Pulmonary effort is normal. Breath sounds: Normal breath sounds. Skin: General: Skin is warm. Neurological: Mental Status: She is alert. Mental status is at baseline. Assessment/Plan Problem List Items Addressed This Visit Precordial pain - Primary 24 yr old female with c/o palpitations associated with left sided chest pain, pressure 5-6/10 radiates into her jaw and her shoulder and sob. Pmhx significant for preeclampsia. ECG today shows sinus arrhythmia with incomplete RBBB. Chest pain is not reproducible. Given symptoms and no previous ECG to compare to, will need to transport via ambulance to the ER for further evaluation. At a minimum, will need a chest x- ray, D-Dimer, and serial troponin's. Will also place a cardiology referral for outpatient evaluation given ECG findings, that will require at least an ECHO Relevant Orders ECG 12 lead ECG 12 lead (Completed) Referral to Cardiology Palpitations Relevant Orders ECG 12 lead Referral to Cardiology documented in this encounter Miscellaneous Notes * Assessment & Plan Note - Reynold Kimball MD - 09/29/2024 12:47 PM EST Associated Problem(s): Precordial pain 24 yr old female with c/o palpitations associated with left sided chest pain, pressure 5-6/10 radiates into her jaw and her shoulder and sob. Pmhx significant for preeclampsia. ECG today shows sinus arrhythmia with incomplete RBBB. Chest pain is not reproducible. Given symptoms and no previous ECG to compare to, will need to transport via ambulance to the ER for further evaluation. At a minimum, will need a chest x- ray, D-Dimer, and serial troponin's. Will also place a cardiology referral for outpatient evaluation given ECG findings, that will require at least an ECHO documented in this encounter Plan of Treatment Scheduled Orders Name Type Priority Associated Diagnoses Orde r Schedule ECG 12 lead ECG Routine Precordial pain Palpitations Ordered: 09/29/2024 Scheduled Referrals Name Type Priority Associated Diagnoses Order Schedule Referral to Cardiology Outpatient Referral Routine Precordial pain Palpitations Expected: 09/29/2024 (Approximate), Expires: 09/29/2025 documented as of this encounter Procedures Procedure Name Priority Date/Time Associated Diagnosis Comments ECG 12-LEAD Routine 09/29/2024 12:42 PM EST Precordial pain documented in this encounter Results * ECG 12 lead (09/29/2024 12:42 PM EST) Narrative Reynold Aburto MD - 09/29/2024 12:42 PM EST Sinus arrhythmia, HR 68 bpm, rSr V2-V3 us Reynold Kimball MD ECG ORDERABLES Final Result documented in this encounter Visit Diagnoses Diagnosis Precordial pain- Primary Palpitations documented in this encounter Additional Health Concerns Assessment Noted Time PHQ-9 Depression Total Score: 0 10/19/19 24 3:23 PM EST documented as of this encounter Care Teams Teenage Babysitter Relationship Specialty Start Date End Date Fannie Ferrell FNP [address] [place] [address] PCP - General Family Medicine 01/21/22 documented as of this encounter
--- OUTSIDE RECORDS SUMMARY | 2024-09-29 16:38 | XMS_ITS | Encounter Summary ---
Author Organization [employer] Address [address] [facility] 7[address] [place] [address] Care Team Providers Care Third Rigger Name Role Phone Fannie Ferrell Primary Care Provider Reason for Visit * Reason Onset Date Comments Call Back Request 01/03/2024 Encounter Details Date Type Department Care Team ([facility] Contact Info) Description 01/03/2024 Telephone [facility] [address] [place], [place] [phone] Fannie Ferrell FNP [address] [place], [place] [phone] Call Back Request Social History Tobacco Use Types Packs/Day Years [...] encounter Miscellaneous Notes * Telephone Encounter - Shelly Christensen - 01/03/2024 11:04 AM EDT Tc from pt requesting to speak with a nurse in regards to Depo injection. Pt states injection causes for her to produce less breast milk and would like to discuss any alternatives. Please contact pt at [phone] documented in this encounter Plan of Treatment Not on file documented as of this encounter Visit Diagnoses Not on filedocumented in this encounter Additional Health Concerns Assessment Noted Time PHQ-9 Depression Total Score: 0 10/19/19 24 3:23 PM EST documented as of this encounter Care Teams Third Rigger Relationship Specialty Start Date End Date Fannie Ferrell FNP [address] [place] [address] PCP - General Family Medicine 01/21/22 Jacey Jane Aircraft [employer] Controls Mechanic 08/22/23 06/28/24 documented as of this encounter
--- OUTSIDE RECORDS SUMMARY | 2024-09-29 16:38 | XMS_ITS | Clinical Summary ---
Author Organization [employer] Address [address] [facility] [address] [place] [address] Care Team Providers Care Refrigeration Engineering Teacher Name Role Phone Fannie Ferrell JASON Primary Care Provider [phone] Allergies Active Allergy Reactions Criticality Noted Date Comments Latex 09/03/2020 Other reaction(s): Acne Shellfish-Derived Products Hives 1 Medications budesonide-formot rahel (Symbicort) 80-4.5 MCG/ACT inhalerIndication s:Mild persistent asthma without complication Inhale 2 puffs twie daily. Rinse mouth with water after use to reduce aftertaste and incidence of candidiasis. Do not swallow. 1 each 11 09/21/19 23 Active EPINEPHrine (Epipen) 0.3 MG/0.3ML injection syringeIndication s:History of multiple allergies Inject 0.3 mL (0.3 mg) as directed 1 (one) time for 1 dose. use as directed for allergic reaction and then call 911 2 each 1 10/05/19 23 Active albuterol (2.5 MG/3ML) 0.083% nebulizer solutionIndicatio ns:Mild persistent asthma without complication Take 3 mL (2.5 mg) by nebulization every 4 (four) hours if needed for wheezing or shortness of breath. 75 mL 3 10/05/19 23 Active labetalol (Normodyne) 200 MG tabletIndications : hypertension Take 1 tablet by mouth 2 times daily. 07/05/20 23 Active medroxyPROGESTERo ne (Depo-Provera) 150 MG/ML injectionIndicati ons:On Depo-Provera for contraception Inject 1 mL (150 mg) into the shoulder, thigh, or buttocks every 3 (three) months. 1 mL 3 10/19/19 24 Active Active Problems Problem Noted Date Diagnosed Date Precordial pain 09/29/2024 Assessment & Plan (09/29/2024 12:48 PM EST): 24 yr old female with c/o palpitations [...] that will require at least an ECHO Palpitations 09/29/2024 Healthcare maintenance 10/19/2023 Overview (10/19/2023): Last PE: 10/19/23 hypertension 10/19/2023 Assessment & Plan (10/19/2023 3:15 PM EST): Continue labetalol 200mg BID Cont lifestyle interventions, low stress as able May consider taper at follow up visit in 1 month Migraine 09/21/2022 Anxiety 05/05/2020 Dysmenorrhea 04/06/2019 Eczema 03/30/2018 Mild persistent asthma 03/30/2018 Overview (10/19/2023): -Symbicort PRN per 2019 EDSON guidelines Assessment & Plan (10/05/2022 7:41 PM EST): -Encouraged use of symbicort 2 puffs BID as well as PRN. 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 Encounters Date Type Department Care Team Description 09/29/2024 12:00 PM EST Office Visit [facility] [address] [place] [address] Reynold Aburto MD Precordial pain (Primary Dx); Palpitations 09/29/2024 Telephone [facility] [address] [place] [address] Naa Kern RN 09/27/2024 Telephone [facility] [address] [place] [phone] Fannie Ferrell FNP Nurse Triage 07/18/2024 Outside Procedure [facility] [address] [place] [address] Jackie Mcclain, OD Accommodative insufficiency (Primary Dx) 07/17/2024 3:15 PM EST Office Visit [facility] [address] [place] [phone] Jackie Mcclain, OD Hypermetropia, right (Primary Dx) 07/03/2024 Telephone [facility] [address] [place] [phone] Fannie Ferrell FNP July recall from Last 3 Months Immunizations Name Administration Dates Next Due Influenza injectable quadrivalent preservative f ree 09/21/2022 Tdap 09/21/2022 Social History Tobacco Use Types Packs/Day Years [...] Orientation Straight 06/14/2022 10 :16 AM EDT Last Filed Vital Signs Vital Sign Reading [...] Mass Index 24.15 09/29/2024 12:10 PM EST Plan of Treatment Health Maintenance Due Date Last Done Comments Dental Oral Exam 2000 Dental Prophylaxis 2000 Dental X-Ray: Bitewings 2000 Family Planning (PISQ) 01/12/2015 Pneumococcal Vaccine: Pediatrics (0 to 5 Years) and At-Risk Patients (6 to 49) Years) (1 of 2 - PCV) 01/12/2019 05/09/2001, 2000, 2000, Additional history exists COVID-19 Vaccine ( season) 2024 08/25/2021, 07/28/2021 Influenza Vaccine (#1) 2024 3, 09/28/2016, 07/24/2015, Additional history exists Alcohol/Substance Use Screening 10/18/2024 10/19/2023 Depression Screening 10/18/2024 10/19/2023, 10/19/19 24 SDOH Screening 10/18/2024 10/19/2023 Tobacco Screening 09/29/2025 09/29/2024 Dental X-Ray: Full Mouth 11/03/2025 11/02/2022 Pap Smear 01/19/2026 01/19/2023 Lipid Panel 09/21/2027 09/21/2022, 03/19/2020 DTaP/Tdap/Td Vaccines (9 - Td or Tdap) 04/29/2033 04/29/2023, 09/21/2022, 05/05/2011, Additional history exists Zoster Vaccines (1 of 2) 01/12/2050 RSV Patients and Patients Aged 60 years or older (1 - 1-dose 75+ series) 01/12/2075 Hepatitis B Vaccines Completed 2000, 2000, 2000, Additional history exists HIB Vaccines Completed 05/09/2001, 11/14, 2000, Additional history exists IPV Vaccines Completed 01/28/2004, 10/13, 2000, Additional history exists HPV Vaccines Completed 06/21/2012, 04/16, 02/17/2010 Hepatitis A Vaccines Completed 02/27/2014, 02/18/20 10 Meningococcal Vaccine Completed 09/28/2016, 011 HIV Screening Completed 09/21/2022, 03/19/2020 Hepatitis C Screening Completed 09/21/2022, 020 RSV under 20 months Aged Out No longe r eligible based on patient's age to complete this topic Rotavirus Vaccines Aged Out No longer eligible based on patient's age to complete this topic Procedures Procedure Name Priority Date/Time Associated Diagnosis Comments ECG 12-LEAD Routine 09/29/2024 12:42 PM EST Precordial pain HM PAP/HPV Routine 01/19/2023 PANORAMIC RADIOGRAPHIC IMAGE Routine 11/02/2022 3:30 PM EDT Dental abscess HEPATITIS C AB W/REFL TO HCV RNA, QN, PCR Routine 09/21/2022 2:45 PM EST Healthcare maintenance HIV 1/2 ANTIGEN/ANTIBODY, FOURTH GENERATION W/RFL Routine 09/21/2022 2:45 PM EST Healthcare maintenance LIPID PANEL, STANDARD Routine 09/21/2022 2:45 PM EST Healthcare maintenance from Last 3 Months or Most Recently Relevant to Health Maintenance Results * ECG 12 lead (09/29/2024 12:42 PM EST) Narrative Reynold Aburto MD - 09/29/2024 12:42 PM EST Sinus arrhythmia, HR 68 bpm, rSr V2-V3 Reynold Kimball MD ECG ORDERABLES Final Result * Hm Pap Smear (01/19/2023) Pap Negative for intraephithelial lesion or malignancy Negative for intraephithelial lesion or malignancy, Other Historical Provider HEALTH MAINTENANCE Final Result * Hepatitis C Antibody with Reflex to HCV, RNA, Quantitative, Real-Time PCR (09/21/2022 2:45 PM EST) Hepatitis C Antibody NON-REACT ROBI NON-REACT ROBI [employer] Index 0.04 <1.00 [employer] Comment: HCV antibody was non-reactive. There is no laboratory evidence of HCV infection. In most cases, no further action is required. However, if recent HCV exposure is suspected, a test for HCV RNA (test code 34677) is suggested. For additional information please refer to http://education.[employer]/faq/RXS14t3 (This link is being provided for informational/ educational purposes only.) Blood Venous blood specimen / Unknown 09/21/2022 2:45 PM EST 09/21/2022 2:45 PM EST Narrative [facility] - 09/22/2022 6:12 PM EST FASTING:UNKNOWN FASTING: UNKNOWN [facility] LAB BLOOD ORDERABLES Final Re sult Performing Organization Address City/[facility]/ZIP Co de Phone Number [facility] [address], [place] [address] [employer] [address] [facility], (N[address]) [place] [address] * HIV-1/2 Antigen and Antibodies, Fourth Generation, with Reflexes (09/21/2022 2:45 PM EST) Pathologist [facility] HIV Antigen/Antibody, 4th Generation NON-REAC TIVE NON-REAC TIVE [employer] Comment: HIV-1 antigen and HIV-1/HIV-2 antibodies were not detected. There is no laboratory evidence of HIV infection. PLEASE NOTE: This information has been disclosed to you from records whose confidentiality may be protected by state law. ??If your state requires such protection, then the state law prohibits you from making any further disclosure of the information without the specific written consent of the person to whom it pertains, or as otherwise permitted by law. A general authorization for the release of medical or other information is NOT sufficient for this purpose. ?? For additional information please refer to http://education.[employer]/faq/FRR405 (This link is being provided for informational/ educational purposes only.) The performance of this assay has not been clinically validated in patients less than 2 years old. Blood Venous blood specimen / Unknown 09/21/2022 2:45 PM EST 09/21/2022 2:45 PM EST Narrative [facility] - 09/22/2022 6:12 PM EST FASTING:UNKNOWN FASTING: UNKNOWN [facility] LAB BLOOD ORDERABLES Final Re sult Performing Organization Address City/[facility]/ZIP Co de Phone Number [facility] [address], [place] [address] [employer] [address] [facility], (Nl[address]) [place] [address] * (ABNORMAL) Lipid Panel, Standard (09/21/2022 2:45 PM EST) Cholesterol, Total 164 <200 mg/dL [employer] HDL Cholesterol 49(L) > OR = 50 mg/dL [employer] Triglycerides 70 <150 mg/dL [employer] LDL Cholesterol 99 mg/dL (calc) [employer] Comment: Reference range: <100 Desirable range <100 mg/dL for primary prevention; ?? <70 mg/dL for patients with CHD or diabetic patients with > or = 2 CHD risk factors. LDL-C is now calculated using the Darleen calculation, which is a validated novel method providing better accuracy than the Friedewald equation in the estimation of LDL-C. Yobani SS et al. ASIA. 2013;310(19): 0276-5628 (http://education.[employer]Template/faq/FAH456) Chol/HDLC Ratio 3.3 <5.0 (calc) [employer] Non-HDL Cholesterol 115 <130 mg/dL (calc) [employer] Comment: For patients with diabetes plus 1 major ASCVD risk factor, treating to a non-HDL-C goal of <100 mg/dL (LDL-C of <70 mg/dL) is considered a therapeutic option. Blood Venous blood specimen / Unknown 09/21/2022 2:45 PM EST 09/21/2022 2:45 PM EST Narrative [facility] - 09/22/2022 6:12 PM EST FASTING:UNKNOWN FASTING: UNKNOWN [facility] STUDENT NURSE LAB BLOOD ORDERABLES Final Re sult [facility] [address], [place] [address] [employer] [address] [facility], (N[address]) [place] [address] from Last 3 Months or Most Recently Relevant to Health Maintenance Insurance [facility] C[facility] STAND ADULT [facility] C3 Care Teams Refrigeration Engineering Teacher Relationship Specialty Start Date End Date Fannie Ferrell FNP [address] [place] [phone] PCP - General Family Medicine 01/21/22
--- OUTSIDE RECORDS SUMMARY | 2024-09-29 16:38 | XMS_ITS | Encounter Summary ---
Author Organization [employer] Address [address] [facility] 7t [place] [address] Care Team Providers Care Centrifugal Screen Tender Name Role Phone Fannie Ferrell Primary Care Provider [phone] Reason for Visit * Reason Onset Date Comments Nurse Triage 09/27/2024 Encounter Details Date Type Department Care Team ([facility] st Contact Info) Description 09/27/2024 Telephone [facility] [address] [place] [address] Fannie Ferrell FNP [address] [place], [place] [phone] Nurse Triage Social History Tobacco Use Types [...] encounter Miscellaneous Notes * Telephone Encounter - Maria Luz Campbell RN - 09/28/2024 10:54 AM EST Patient states she is feeling better today. * Telephone Encounter - JASON Harper - 09/27/2024 4:21 PM EST Please call for status check tomorrow and request ED visit notes after triage. Please also assist with rescheduling appt. From coremaking supervisor: is not on ANY BP medication at present due to missing an appt. With PCP and then no one got back to her to reschedule. Per chart review, she NS to PCP appt on 01/18/24, and then she was called by nurses on 06/06/24 and RMA on 07/03/24 to schedule appt and LVM. Letter was sent on 07/03/24. Please confirm that her numberand address in chart are correct as multiple team members have been attempting to reach her and schedule appts. Thank you! * Telephone Encounter - Alva Roberts RN - 09/27/2024 3:27 PM EST Called pt. She states that her Son is 14 months old now and pt. Developed Hypertension. Recently pt. States that her BP has been fluctuating rapidly with severe high BP and then low BP. This am pt. BP was 142/130 and then an hour later it was low. Pt. Cannot recall number. Pt states she drinks lotsof water and coconut water because she is and she is aware that during breast feeding, BP can lower. Pt states she was on BP medication at the last couple months of for developing preeclampsia and stayed on it for a bit but, is not on ANY BP medication at present due to missing an appt. With PCP and then no one got back to her to reschedule. Last BP was 15 minutes ago and it was 122/86. Pt states she has back pain, palpitations, and has recently developed numbness in legs over the past couple weeks when she sits and/or folds her legs. Pt. Is denying chest pain at present, no left shoulder or arm pain or heaviness, no nausea, no vision changes, no jaw pain. Pt. Is speaking in clear sentences and does not have any SOB at present. I advised that it would be best forher to go to ED for evaluation based on her BP this am and sx. Her Boyfriend is there and she states she will probably go to [facility] ED. I will send this note to team nurses for FU with pt. On 09/28/24. Henry advised pt. If she develops chest pain on the way to call 911. Pt. Agrees with plan. Protocol Used: Blood Pressure - High (Adult) Protocol-Based Disposition: Go to ED Now Positive Triage Question: * Systolic BP >= 160 OR Diastolic >= 100, and any cardiac (e.g., breathing difficulty, chest pain) or neurologic symptoms (e.g., new-onset blurred or double vision) * All higher-acuity triage questions were negative Care Advice Discussed: * High Blood Pressure * Telephone Encounter - Ruben Lanier - 09/27/2024 2:52 PM EST Symptoms: High Blood Pressure - Caller Reports, Low Blood Pressure - Caller Reports, Headache Outcome: Talk to a nurse or provider within 15 minutes Reason: Severe headache The caller accepted this outcome. documented in this encounter Plan of Treatment Not on file documented as of this encounter Visit Diagnoses Not on filedocumented in this encounter Additional Health Concerns Assessment Noted Time PHQ-9 Depression Total Score: 0 10/19/19 24 3:23 PM EST documented as of this encounter Care Teams Centrifugal Screen Tender Relationship Specialty Start Date End Date Fannie Ferrell FNP [address] [place] [phone] PCP - General Family Medicine 01/21/22 documented as of this encounter
[2024-09-29] MEDS: Labetalol HCL 200 MG TABLET PO (19:30)
== END 2024-09-29 19:40 | disposition home or self-care (01) ==
PROVIDERS: Physician Assistant Medical; Emergency Provider Emergency Medicine Emergency Medical Services
DX: R07.89 Other chest pain (principal); R00.2 Palpitations; I45.10 Unspecified right bundle-branch block; I10 Essential (primary) hypertension; Z79.899 Other long term (current) drug therapy; Z03.818 Encounter for observation for suspected exposure to other biological agents ruled out
CPT/HCPCS: 0241U; 80053; 83735; 84484; 84702; 85025; 93005; 99283; 99284

== ENCOUNTER → 2024-09-29 13:09 | Outpatient (BNV) | payer MEDICAID, SELFPAY | PROVIDERS: Emergency Provider Emergency Medicine Emergency Medical Services; Visit Provider Internal Medicine Cardiovascular Disease | DX: I49.9 Cardiac arrhythmia, unspecified (principal) | CPT/HCPCS: 93010 ==

== ENCOUNTER → 2024-10-15 11:09 | Outpatient (REF) | payer MEDICAID, SELFPAY ==
--- OUTSIDE RECORDS SUMMARY | 2024-10-15 13:16 | XMS_ITS | Encounter Summary ---
Author Organization [employer] Address [address] [facility] [address] [place] [address] Care Team Providers Care Operations Executive Name Role Phone Fannie Ferrell Primary Care Provider [phone] Reason for Visit * Reason Onset Date Comments triage 11/10/2022 Encounter Details Date Type Department Care Team ([facility] st Contact Info) Description 11/10/2022 Telephone [facility] MEDICINE [address] [place] [address] Fannie Ferrell FNP [address] [place] [address] triage Social History Tobacco Use Types Packs/Day Years Used Date Smoking Tobacco: Never Smokeless Tobacco: Never Alcohol Use Standard Drinks/Week Comments Never 0 (1 standard drink = 0.6 oz pur e alcohol) Depression Answer Date Recorded Patient Health Questionnaire-2 Score 0 09/21/2022 Comments Unknown Sex and Gender Information Value Date Recorded Sex Assigned at Female 06/14/2022 10:16 AM EDT Legal Sex Female 10:16 AM EDT Gender Identity Female 06/14/2022 10:16 AM EDT Sexual Orientation Straight 06/14/2022 10 :16 AM EDT COVID-19 Exposure Response Date Recorded In the last 10 days, have yo u been in contact with someone who was confirmed or suspected to have Coronavirus/COVID-19? No / Unsure 11/02/2022 3:33 PM EDT documented as of this encounter Miscellaneous Notes * Telephone Encounter - Caterina Jaime RN - 11/10/2022 10:12 AM EDT Triage call Pt reports + test 11/09 morning and having some nausea/morning sickness. Pt reports tender breasts and sensitive emotionally. Pt agrees with disposition at this time and home care reviewed. Apt with PCP 11/23 @ 330pm to begin care. Protocol Used: - Morning Sickness (Nausea and Vomiting of ) (Adult) Protocol-Based Disposition: Home Care Positive Triage Question: * Nausea or vomiting * All higher-acuity triage questions were negative Care Advice Discussed: * Reassurance and Education - Nausea and Vomiting During * Step 1 - Clear Fluids * Step 2 - Diet - Crackers * Step 3 - Diet - Starches, Chicken, Fish * Vitamins for * Vitamin B6 (Pyridoxine) for Morning Sickness * Protect Your Teeth - Rinse Your Mouth After Vomiting * Expected Course * Reasons To Call Back - Moderate vomiting lasts over 3 days - Severe diarrhea occurs (many watery bowel movements) - Fever, abdomen pain, or vaginal bleeding occurs - Unable to keep any liquids down - No urination over 12 hours - No improvement after using morning sickness Care Advice - You become worse * Telephone Encounter - Angela Sparrow - 11/10/2022 8:58 AM EDT Symptoms: Morning Sickness, Nausea But No Vomiting Outcome: Schedule a same-day appointment or talk to a nurse or provider today Reason: No high acuity concerns reported by caller The caller accepted this outcome Please contact pt at [phone] documented in this encounter Plan of Treatment Upcoming Encounters Date Type Department Care Team (Late st Contact Info) Description 11/29/2024 2:30 PM EDT Office Visit [facility] MED & PEDS [address] [place], [place] [phone] Guillermina Oakley MD [address] [place], [place] [phone] documented as of this encounter Visit Diagnoses Not on filedocumented in this encounter Care Teams Operations Executive Relationship Specialty Start Date End Date Fannie Ferrell FNP [address] [place] [address] PCP - General Family Medicine 01/21/22 Jacey Jane Funeral Service Practitioner/Embalmer 08/22/23 06/28/24 documented as of this encounter
--- OUTSIDE RECORDS SUMMARY | 2024-10-15 13:16 | XMS_ITS | Encounter Summary ---
Author Organization [employer] Address [address] [facility] 7[address] [place] [address] Care Team Providers Care Slag Wheeler Name Role Phone Fannie Ferrell JASON Primary Care Provider [phone] Reason for Visit * Reason Onset Date Comments ER Follow-up 09/29/2024 Encounter Details Date Type Department Care Team ([facility] st Contact Info) Description 09/29/2024 Telephone [facility] MEDICINE [address] [place], [place] [phone] Naa Kern RN [address] [place] [address] ER Follow-up Social History Tobacco Use Types Packs/Day Years [...] encounter Miscellaneous Notes * Telephone Encounter - Dee Woodruff RN - 10/02/2024 10:11 AM EST Patient sent [facility] from [facility] Walk in on 09/29/2024. Call placed for follow up. Today, patient reports her symptoms are ongoing. She reports since the of her son 15 months ago she has been having intermittent palpitations. Denies chest pain. When she experiences palpitations, she reports she also feels short of breath and dizzy at times. No syncopal episodes. Currently does not have symptoms. Her symptoms are intermittent but have been present for > 1 year. Per hospital documentation: Patient has been having intermittent hypertension and palpitations. In ED, COVID/RSV/Influenza were negative. Troponin was below detectable limits. CBC was normal. BMP with elevated chloride. Patient was re-started on labetalol 200 mg twice daily. EKG in ED was interpreted as normal sinus rhythm with a HR of 65. Patient was referred to cardiology at [facility] walk in visit 09/29/2024. Appointment booked with Dr. Oakley 10/04/2024 at 2:00 PM. Advised patient that she can call clinic with any additional questions or concerns. Reinforced ED precautions at length. Will also send to PCP. * Telephone Encounter - Naa Kern RN - 10/02/2024 8:36 AM EST FYI: pt sent to [facility] via ambulance during Tuesday clinic for new abnormal EKG showing an incomplete bundle-branch block. Had presented for unstable blood pressure and palpitations.Will need follow up fncomplete bundle- branch block documented in this encounter Plan of Treatment Upcoming Encounters Date Type Department Care Team (Late st Contact Info) Description 11/29/2024 2:30 PM EDT Office Visit [facility] MED & PEDS [address] [place], [place] [phone] Guillermina Oakley MD [address] [place] [address] documented as of this encounter Visit Diagnoses Not on filedocumented in this encounter Additional Health Concerns Assessment Noted Time PHQ-9 Depression Total Score: 0 10/19/19 24 3:23 PM EST documented as of this encounter Care Teams Slag Wheeler Relationship Specialty Start Date End Date Fannie Ferrell FNP [address] [place] [address] PCP - General Family Medicine 01/21/22 documented as of this encounter
--- OUTSIDE RECORDS SUMMARY | 2024-10-15 13:16 | XMS_ITS | Encounter Summary ---
Author Organization [employer] Address [address] [facility] 7t [place] [address] Care Team Providers Care Customer Solutions Supervisor Name Role Phone Fannie Ferrell Primary Care Provider [phone] Reason for Visit * Reason Onset Date Comments Nurse Triage 10/09/2024 Encounter Details Date Type Department Care Team ([facility] st Contact Info) Description 10/09/2024 Telephone [facility] MEDICINE [address] [place] [address] Fannie Ferrell FNP [address] [place], [place] [phone] Nurse Triage Social History Tobacco Use Types [...] encounter Miscellaneous Notes * Telephone Encounter - Livia Santos RN - 10/09/2024 11:59 AM EST TC to pt to discuss provider recommendations. Informed pt that provider recommends continuing current dose of labetalol and buspirone. Instructed pt to call office back if palpitations continue and if having symptoms of low blood pressure and reviewed symptoms with pt. All questions answered. Pt verbalized understanding and agreement with plan. * Telephone Encounter - Edita Valero LPN - 10/09/2024 9:36 AM EST Triage call returned to patient who reports concerns with medications. Seen by on 10/04 and Labetalol decreased to 100mg BID and now on buspirone 5mg BID for anxiety. Patient anxious with rapid speech thru call. Patient reports that when BP systolic gets into 112-110 range she begins to have palpitations. Last night systolic 103/ and did not take anxiety med and is did not take Labetalol as BP 102/80. Palpitations described as feeling skipped beats and at times feels it normal followed by racing and thumps then normal. Patient drinking Cranberry drinks and reports that they are like gatorade electrolyte drinks. Patient confirms good fluid intake. Today was awake last night with concerns. BP now at time of call is 118/77 HR 72. Patient requesting advice in regards whether to take Labetalol and Buspirone. To note, patient contacted [place] [facility] [place] and will be fitted with Holter Monitor tomorrow with duration of 40 wear time. Forwardedto PCP and team as FYI to follow up PRN Protocol Used: Medication Question Call (Adult) Protocol-Based Disposition: Discuss with PCP and Callback by Nurse within 1 Hour Video visit not offered Positive Triage Question: * Caller has URGENT medicine question about med that PCP or specialist prescribed and triager unable to answer question * All higher-acuity triage questions were negative * Telephone Encounter - Westley Anderson - 10/09/2024 9:10 AM EST Symptom: Low Blood Pressure - Caller Reports Outcome: Schedule a same-day appointment or talk to a nurse or provider today Reason: Caller denied all higher acuity questions Please contact pt at [phone]. documented in this encounter Plan of Treatment Upcoming Encounters Date Type Department Care Team ([facility] st Contact Info) Description 11/29/2024 2:30 PM EDT Office Visit [facility]EDS [address] [place] [address] Guillermina Oakley MD [address] [place] [address] documented as of this encounter Visit Diagnoses Not on filedocumented in this encounter Additional Health Concerns Assessment Noted Time PHQ-9 Depression Total Score: 0 10/19/19 24 3:23 PM EST documented as of this encounter Care Teams Customer Solutions Supervisor Relationship Specialty Start Date End Date Fannie Ferrell FNP [address] [place] [address] PCP - General Family Medicine 01/21/22 documented as of this encounter
--- OUTSIDE RECORDS SUMMARY | 2024-10-15 13:16 | XMS_ITS | Encounter Summary ---
Author Organization [employer] Address [address] [facility] 7[address] [place] [address] Care Team Providers Care Currency Counter Name Role Phone Fannie Ferrell Primary Care Provider [phone] Reason for Visit * Reason Onset Date Comments Nurse Triage 09/27/2024 Encounter Details Date Type Department Care Team ([facility] st Contact Info) Description 09/27/2024 Telephone [facility] MEDICINE [address] [place] [address] Fannie Ferrell FNP [address] [place], [place] [phone] Nurse Triage Social History Tobacco Use Types [...] Please also assist with rescheduling appt. From bacteriology teacher: is not on ANY BP medication at [...] she states she will probably go to [facility] ED. I will send this note [...] Upcoming Encounters Date Type Department Care Team ([facility] st Contact Info) Description 11/29/2024 2:30 PM EDT Office Visit [facility] MED & PEDS [address] [place] [address] Guillermina Oakley MD [address] [place], [place] [phone] documented as of this encounter Visit Diagnoses Not on filedocumented in this encounter Additional Health Concerns Assessment Noted Time PHQ-9 Depression Total Score: 0 10/19/19 24 3:23 PM EST documented as of this encounter Care Teams Currency Counter Relationship Specialty Start Date End Date Fannie Ferrell FNP [address] [place] [address] PCP - General Family Medicine 01/21/22 documented as of this encounter
--- OUTSIDE RECORDS SUMMARY | 2024-10-15 13:16 | XMS_ITS | Encounter Summary ---
Author Organization [employer] Address [address] [facility] 7t [place] [address] Care Team Providers Care Sheet Metal Production Worker Name Role Phone Fannie Ferrell Primary Care Provider [phone] Reason for Referral * Consultation (Routine) - Closed Specialty Diagnoses / Procedures Referred By Mariana stanford Referred To Contact Optometry Diagnoses Healthcare maintenance Fannie Ferrell FNP [address] [place] [address] Phone: tel: fax: [facility] [address] [place] [address] Phone: tel: fax: Referral ID Status Reason Start Date Expiration Date V isits Requested Visits Authorized [id number] Closed Consult and Treat 12/13/2023 12/12/2024 1 1 Reason for Visit * Reason Onset Date Comments Referral 12/12/2023 Encounter Details Date Type Department Care Team (Late st Contact Info) Description 12/12/2023 Telephone [facility] MEDICINE [address] [place] [address] Fannie Ferrell FNP [address] [place] [address] Referral Social History Tobacco Use Types Packs/Day [...] t he electric, gas, oil or water [employer] threatened to shut off services in your [...] her know that I placed referral to [facility], but they currently have a wait list that is scheduling in fall or winter of 2023. If she has any current vision concerns please have her call to be triaged sooner ,Thank you. * Telephone Encounter - Westley Justin - 12/12/2023 12:14 PM EDT TC from pt requesting new referral: Address: [address] [place] [address] Facility Name: [facility] Type of Specialist: Automotive Quality Engineer documented in this encounter Plan of Treatment Upcoming Encounters Date Type Department Care Team (Late st Contact Info) Description 11/29/2024 2:30 PM EDT Office Visit [facility]EDS [address] [place] [address] Guillermina Oakley MD [address] [place] [address] Scheduled Referrals Name Type Priority Associated Diagnoses Orde r Schedule Referral to [facility] Outpatient Referral Routine Healthcare maintenance Expected: 12/13/2023 (Approximate), Expires: 12/12/2024 documented as of this encounter Visit Diagnoses Diagnosis Healthcare maintenance- Primary documented in this encounter Additional Health Concerns Assessment Noted Time PHQ-9 Depression Total Score: 0 10/19/19 24 3:23 PM EST documented as of this encounter Care Teams Sheet Metal Production Worker Relationship Specialty Start Date End Date Fannie Ferrell FNP [address] [place] [id number] PCP - General Family Medicine 01/21/22 Jacey Jane Donor Relations Coordinator 08/22/23 06/28/24 documented as of this encounter
--- OUTSIDE RECORDS SUMMARY | 2024-10-15 13:16 | XMS_ITS | Clinical Summary ---
Author Organization [employer] Address [address] [facility] 7[address] [place] [address] Care Team Providers Care Elevated Motorman Name Role Phone Fannie Ferrell JASON Primary Care Provider [phone] Allergies Active Allergy Reactions Criticality Noted Date [...] months. 1 mL 3 10/19/19 24 Active labetalol (Normodyne) 100 MG tabletIndications :Palpitations,Pos tpartum hypertension Take 1 tablet (100 mg) by mouth 2 times daily. 60 tablet 11 10/04/19 25 026 Active busPIRone (Buspar) 5 MG tabletIndications :Anxiety Take 1 tablet (5 mg) by mouth 2 times daily. 60 tablet 10/04/19 25 026 Active Active Problems Problem Noted Date Diagnosed [...] Encounters Date Type Department Care Team Description 10/09/2024 Telephone [facility] [address] [place] [phone] Fannie Ferrell FNP Nurse Triage 10/04/2024 2:00 PM EST Office Visit [facility] MED & PEDS [address] [place], [place] [phone] Guillermina Oakley MD Palpitations (Primary Dx); Anxiety; hypertension 10/04/2024 Travel 09/29/2024 12:00 PM EST Office Visit [facility] [address] [place] [address] Reynold Aburto MD Precordial pain (Primary Dx); Palpitations 09/29/2024 Orders Only GENERIC EXTERNAL DATA DEPARTMENT Provider, Generic External Data 09/29/[address] [address] Naa Kern, PULL OUT OPERATOR Follow-up 09/27/[address] [address] Fannie Ferrell FNP Nurse Triage 07/18/2024 Outside Procedure [facility]OM[facility] [address] [place] [address] Johny, Jackie, OD Accommodative insufficiency (Primary Dx) 07/17/2024 3:15 PM EST Office Visit [facility] OPTOMET[facility] [address] [place], [place] [phone] Johny, Jackie, OD Hypermetropia, right (Primary Dx) from Last 3 Months Immunizations Name Administration [...] your housing situation today? I have antwan sgeal 05/31/[address] you li [...] Sign Reading Time Taken Comments Blood Pressure 118/75 10/04/2024 2:09 PM EST Pulse 85 10/04/2024 2:09 PM EST Temperature 36.4 ??C (97.6 ??F) 10/04/2024 2:09 PM ES T Respiratory Rate 20 10/04/2024 2:09 PM EST Oxygen Saturation 97% 10/04/2024 2:09 PM EST Inhaled Oxygen Concentration - - Weight 51.3 kg (113 lb) 10/04/2024 2:09 PM EST Height 144.8 cm (4' 9 ) 10/04/2024 2:09 PM EST Body Mass Index 24.45 10/04/2024 2:09 PM EST Plan of Treatment Upcoming Encounters Date Type Department Care Team ([facility] st Contact Info) Description 11/29/2024 2:30 PM EDT Office Visit [facility] P[facility] [address] [place] [address] Guillermina Oakley MD [address] [place] [address] Health Maintenance Due Date Last Done Comments Dental Oral Exam 2000 Dental Prophylaxis 2000 Dental X-Ray: Bitewings 2000 Family Planning (PISQ) 01/12/2015 Pneumococcal Vaccine: Pediatrics (0 to 5 Years) and At-Risk Patients (6 to 49) Years) (1 of 2 - PCV) 01/12/2019 05/09/2001, 2000, 2000, Additional history exists COVID-19 Vaccine ( - 2023- season) 2024 08/25/2021, 07/28/2021 Influenza Vaccine (#1) 2024 , 09/28/2016, 07/24/2015, Additional history exists Alcohol/Substance Use Screening 10/18/2024 10/19/2023 Depression Screening 10/18/2024 10/19/2023, 10/19/19 24 SDOH Screening 10/18/2024 10/19/2023 Tobacco Screening 10/04/2025 10/04/2024 Dental X-Ray: Full Mouth 11/03/2025 11/02/2022 Pap [...] Procedure Name Priority Date/Time Associated Diagnosis Comments HCG, TOTAL, QN Routine 09/29/2024 1:46 PM EST MAGNESIUM Routine 09/29/2024 1:46 PM EST COMPREHENSIVE METABOLIC PANEL Routine 09/29/2024 1:46 PM EST HIGH SENSITIVITY TROPONIN I Routine 09/29/2024 1:46 PM EST CBC WITH AUTO DIFFERENTIAL Routine 09/29/2024 1:46 PM EST SARS COV2/INFLUENZA A/B AND RSV RNA QL NAAT Routine 09/29/2024 1:46 PM EST ECG 12-LEAD Routine 09/29/2024 12:42 PM EST [...] Recently Relevant to Health Maintenance Results * High Sensitivity Troponin I (09/29/2024 1:46 PM EST) Pathologist [facility] TROPONIN I HIGH SENSITIVITY <2.7 <3.5 - 17.0 ng/L [facility] Comment:The Robles high sens itivity Troponin-I results should beused in conjunction with other diagnostic information suchas ECG, clinical observations and information, and patientsymptoms to aid in the diagnosis of OR. 09/29/2024 1:46 PM EST 09/29/2024 1:49 PM EST us Generic External Data Provider LAB BLOOD ORDERAB LES Final Result [facility] [address] [place] [phone] * SARS-CoV-2 RNA, Influenza A/B, and RSV RNA, Ql NAAT (09/29/2024 1:46 PM EST) [facility] Influenza A PCR NEGATIVE Negative [facility] Influenza B PCR NEGATIVE Negative [facility] Resp Syncy Virus RNA Qual PCR NEGATIVE Negative [facility] SARS COV2 PCR NEGATIVE Negative [facility] Comment:All test results mus t be correlated with clinical findings.Negative results do not preclude SARS-CoV2, influenza Avirus, influenza B virus and/or RSV infectionand should not be used as the sole basis for treatment orother patient management decisions. Negative results must becombined with clinical observations, patient history, andepidemiological information.This test has not been evaluated for monitoring treatment ofinfection.This test has been authorized by the FDA under an EmergencyUse Authorization (EUA) for use by authorized laboratories.Testing performed on the [employer] GeneXpert utilizingreal-time RT-PCR.All SARS CoV2 and positive influenza A/B results arereported to [facility]. 09/29/2024 1:4 6 PM EST 09/29/2024 1:49 PM EST us Generic External Data Provider LAB MICROBIOLOGY - GENERAL ORDERABLES Final Result [facility] [address] [place] [address] [phone] * CBC auto differential (09/29/2024 1:46 PM EST) White Blood Count 8.2 4.8 - 10.8 X10*3/uL [facility] Red Blood Count 4.52 4.20 - 5.50 X10*6/uL [facility] Hemoglobin 14.0 12.0 - 16.0 g/dl [facility] Hematocrit 42.7 37.0 - 47.0 % [facility] Mean Corpuscular Volume 94.5 80.0 - 98.0 fL [facility] Mean Corpuscular Hemoglobin 31.0 27.0 - 33.0 pg [facility] Mean Corpuscular HGB Conc 32.8 31.0 - 35.0 g/dl [facility] Red Cell Distribution Width 13.2 11.0 - 16.0 % [facility] Platelet Count 216 160 - 400 X10*3/uL [facility] Mean Platelet Volume 11.3 9.4 - 12.3 fL [facility] Neutrophils Percent Auto 67.1 45 - 73 % [facility] Imm Gran Pct Auto 0.4 0.0 - 0.4 % [facility] Lymphocytes Percent Auto 22.0 20 - 40 % [facility] Monocytes Percent Auto 6.1 2 - 11 % [facility] Eosinophils Percent Auto 4.0 0 - 4 % [facility] Basophils Percent Auto 0.4 0 - 2 % [facility] NRBC Pct Auto 0.0 0.0 - 0.2 /100WBC [facility] Neutrophils Absolute Auto 5.5 2.0 - 8.3 x10*3/uL [facility] Imm Gran Abs Auto 0.03 0.00 - 0.03 X10*3/uL [facility] Lymphocytes Absolute Auto 1.8 1.2 - 4.9 X10*3/uL [facility] Monocytes Absolute Auto 0.5 0.1 - 1.2 X10*3/uL [facility] Eosinophils Absolute Auto 0.3 0.0 - 0.4 X10*3/uL [facility] Basophils Absolute Auto 0.0 0.0 - 0.2 X10*3/uL [facility] NRBC Abs Auto 0.000 0.0 - 0.012 X10*3/uL [facility] 09/29/2024 1:46 PM EST 09/29/2024 1:49 PM EST us Generic External Data Provider LAB BLOOD ORDERAB LES Final Result Performing Organization Address City/State/[facility] Co de Phone Number [facility] [address] [place] [phone] * hCG, Total, Quantitative (09/29/2024 1:46 PM EST) HCG Quantitative <2 mIU/mL [facility] Comment:Weeks post LMP Appr oximate hCG(Last Menstrual Period) Range (mIU/ml)3 - 4 weeks 9 - 1304 - 5 weeks 75 - 2,6005 - 6 weeks 850 - 20,8006 - 7 weeks 4000 - 100,2007 - 12 weeks 11,500 - 289,17175 - 16 weeks 18,300 - 137,41004 - 29 weeks (2nd trimester) 1,400 - 53,05581 - 41 weeks (3rd trimester) 940 - 60,000The Robles B-hCG assay is used for the early detection ofpregnancy; it cannot be used to diagnose any conditionunrelated to . If a B-hCG level is not supportedby the clinical evidence, results should be confirmed by analternative method (qualitative urine hCG, for example). 09/29/2024 1:46 PM EST 09/29/2024 1:49 PM EST us Generic External Data Provider LAB BLOOD ORDERAB LES Final Result Performing Organization Address City/[facility]/ZIP Co de Phone Number [facility] [address] [place] [address] [phone] * Magnesium (09/29/2024 1:46 PM EST) Magnesium 2.1 1.6 - 2.6 mg/dL [facility] 09/29/2024 1:46 PM EST 09/29/2024 1:49 PM EST Generic External Data Provider LAB BLOOD ORDERAB LES Final Result Performing Organization Address [facility] de Phone Number [facility] [address] [place] [address] [phone] * (ABNORMAL) Comprehensive Metabolic Panel (09/29/2024 1:46 PM EST) Sodium 141 135 - 145 mmol/L [facility] Potassium 4.2 3.3 - 5.1 mmol/L [facility] Chloride 112(H) 96 - 108 mmol/L [facility] Carbon Dioxide 21(L) 22 - 29 mmol/L [facility] Anion Gap 12 12 - 20 [facility] Urea Nitrogen (BUN) 11 9 - 16 mg/dL [facility] Creatinine, Serum 0.65 0.5 - 1.4 mg/dL [facility] Creatinine Clr Calc Pharmacy 94.1 [facility] Comment:Provided height and weight: 147.32 cm,50.349 kg.eGFR (calculated from the MDRD study equation) and eCrCl(calculated from the Cockcroft-Gault equation) are based ondifferent parameters and may not yield comparable results.If eCrCl result is absurd, please check patient'sheight/weight. Estimated Glomerular Filt Rate >60 [facility] Comment:Chronic Kidney Disea se: Estimated GFR < 60 mL/min/1.04g6Bsajxt Kidney Disease: Estimated GFR < 15 mL/min/1.73m2 Glucose 88 60 - 115 mg/dL [facility] Calcium 8.8 8.4 - 10.2 mg/dL [facility] Bilirubin, Total 0.4 0.0 - 1.0 mg/dL [facility] Aspartate Amino Transferase 18 5 - 31 U/L [facility] Alanine Aminotransferase 14 0 - 31 U/L [facility] Total Protein 7.8 6.5 - 8.0 g/dL [facility] Albumin Level 4.4 3.5 - 5.0 g/dL [facility] Alkaline Phosphatase 102 39 - 117 U/L [facility] 09/29/2024 1:46 PM EST 09/29/2024 1:49 PM EST Generic External Data Provider LAB BLOOD ORDERAB LES Final Result Performing Organization Address City/State/[facility] Co de Phone Number [facility] [address] [place] [phone] * ECG 12 lead (09/29/2024 12:42 PM EST) Narrative Reynold Aburto MD - 09/29/2024 12:42 PM EST Sinus arrhythmia, HR 68 bpm, rSr V2-V3 us Reynold Kimball MD ECG ORDERABLES Final Result * Pap Smear (01/19/2023) Pathologist [facility] Pap Negative for intraephithelial lesion or malignancy Negative for intraephithelial lesion or malignancy, Other us Historical Provider HEALTH MAINTENANCE Final Result * Hepatitis C Antibody with Reflex to HCV, RNA, Quantitative, Real-Time PCR (09/21/2022 2:45 PM EST) Pathologist [facility] Hepatitis C Antibody NON-REACT ROBI NON-REACT ROBI [facility] Index 0.04 <1.00 [facility] Comment: HCV antibody was non-reactive. There is no laboratory evidence of HCV infection. In most cases, no further action is required. However, if recent HCV exposure is suspected, a test for HCV RNA (test code 06968) is suggested. For additional information please refer to http://Qype.JMB Energie/faq/NYE55g7 (This link is being provided for informational/ educational purposes only.) Blood Venous blood specimen / Unknown 09/21/2022 2:45 PM EST 09/21/2022 2:45 PM EST Narrative [facility] - 09/22/2022 6:12 PM EST FASTING:UNKNOWN FASTING: UNKNOWN [facility] LAB BLOOD ORDERABLES Final Re sult [facility] [address] [facility] [place] [address] [facility] [address] [facility], ([address]) [place] [address] * HIV-1/2 Antigen and Antibodies, Fourth Generation, with Reflexes (09/21/2022 2:45 PM EST) Pathologist [facility] HIV Antigen/Antibody, 4th Generation NON-REAC TIVE NON-REAC TIVE [facility] Comment: HIV-1 antigen and HIV-1/HIV-2 antibodies were [...] ?? For additional information please refer to http://Qype.JMB Energie/faq/GJB056 (This link is being provided for informational/ educational purposes only.) The performance of this assay has not been clinically validated in patients less than 2 years old. Blood Venous blood specimen / Unknown 09/21/2022 2:45 PM EST 09/21/2022 2:45 PM EST Narrative [facility] - 09/22/2022 6:12 PM EST FASTING:UNKNOWN FASTING: UNKNOWN [facility] LAB BLOOD ORDERABLES Final Re sult [facility] [address] [facility], [place] [address] [facility] [address], ([address]) [place] [address] * (ABNORMAL) Lipid Panel, Standard (09/21/2022 2:45 PM EST) [facility] Cholesterol, Total 164 <200 mg/dL [facility] HDL Cholesterol 49(L) > OR = 50 mg/dL [facility] Triglycerides 70 <150 mg/dL [facility] LDL Cholesterol 99 mg/dL (calc) [facility] Comment: Reference range: <100 Desirable range <100 mg/dL for primary prevention; ?? <70 mg/dL for patients with CHD or diabetic patients with > or = 2 CHD risk factors. LDL-C is now calculated using the Yobani-Malia calculation, which is a validated novel method providing better accuracy than the Friedewald equation in the estimation of LDL-C. Yobani SS et al. ASIA. 2013;310(19): 7830-9141 (http://education.LightInTheBox.com/faq/IGO035) Chol/HDLC Ratio 3.3 <5.0 (calc) [facility] Non-HDL Cholesterol 115 <130 mg/dL (calc) [facility] Comment: For patients with diabetes plus 1 major ASCVD risk factor, treating to a non-HDL-C goal of <100 mg/dL (LDL-C of <70 mg/dL) is considered a therapeutic option. Blood Venous blood specimen / Unknown 09/21/2022 2:45 PM EST 09/21/2022 2:45 PM EST Narrative [facility] - 09/22/2022 6:12 PM EST FASTING:UNKNOWN FASTING: UNKNOWN [facility] LAB BLOOD ORDERABLES Final Re sult [facility] [address] [facility], [place] [address] [facility] [address] [facility], ([address]) [place] [address] from Last 3 Months or Most Recently Relevant to Health Maintenance Insurance [facility] C3 DENTAL-[facility] MEDICAID STAND ADULT [facility] C[facility] Care Teams Elevated Motorman Relationship Specialty Start Date End Date Fannie Ferrell FNP [address] [place] [phone] PCP - General Family Medicine 01/21/22
--- OUTSIDE RECORDS SUMMARY | 2024-10-15 13:16 | XMS_ITS | Encounter Summary ---
Author Organization [employer] Address [address] [facility] [address] [place] [address] Care Team Providers Care Centrifugal Wax Molder Name Role Phone Fannie Ferrell JASON Primary Care Provider [phone] Encounter Details Date Type Department Care Team (Latest Contact Info) Description 10/04/2024 Travel Social History Tobacco Use Types Packs/Day Years [...] as of this encounter Plan of Treatment Upcoming Encounters Date Type Department Care Team (Late st Contact Info) Description 11/29/2024 2:30 PM EDT Office Visit [facility] P[facility] [address] [place] [address] Guillermina Oakley MD [address] [place] [address] documented as of this encounter Visit Diagnoses Not on filedocumented in this encounter Additional Health Concerns Assessment Noted Time PHQ-9 Depression Total Score: 0 10/19/19 24 3:23 PM EST documented as of this encounter Care Teams Centrifugal Wax Molder Relationship Specialty Start Date End Date Fannie Ferrell FNP [address] [place] [address] PCP - General Family Medicine 01/21/22 documented as of this encounter
--- OUTSIDE RECORDS SUMMARY | 2024-10-15 13:16 | XMS_ITS | Encounter Summary ---
Author Organization [employer] Address [address] [facility] [address] [place] [address] Care Team Providers Care Motor Vehicle Assembly Supervisor Name Role Phone Fannie Ferrell JASON Primary Care Provider [phone] Reason for Referral * Cardiology (Routine) - Authorized Specialty Diagnoses / Procedures Referred By Contac t Referred To Contact Cardiology Diagnoses Palpitations Procedures Holter monitor - 48 hour Guillermina Oakley MD [address] [place] [address] Phone: tel: fax: [address] Phone: tel: fax: Referral ID Status Reason Start Date Expiration Date V isits Requested Visits Authorized [id number] Authorized 10/04/2024 10/04/2025 1 1 * Consultation (Routine) - Authorized Specialty Diagnoses / Procedures Referred By Contjuan t Referred To Contact Behavioral Health Diagnoses Anxiety Guillermina Oakley MD [address] [place] [address] Phone: tel: fax: Referral ID Status Reason Start Date Expiration Date Visits Requested Visits Authorized [id number] Authorized Specialty Services Required 10/04/2024 10/04/2025 1 1 Reason for Visit * Reason Comments ER Follow-up Encounter Details Date Type Department Care Team ([facility] st Contact Info) Description 10/04/2024 2:00 PM EST Office Visit [facility] [address] [place] [address] Guillermina Oakley MD [address] [place] [address] Palpitations (Primary Dx); Anxiety; hypertension Social History Tobacco Use Types Packs/Day Years [...] Mass Index 24.45 10/04/2024 2:09 PM EST documented in this encounter Progress Notes * Guillermina Oakley MD - 10/04/2024 2:00 PM EST Subjective Patient ID: Aj Ho is a 24 y.o. female who presents for No chief complaint on file.. ER Follow-up Pertinent negatives include no chest pain, chills, coughing, diaphoresis or rash. Patient was evaluated at the walk-in clinic on September 29, 2024 for palpitation and left-sided chest pain. She was transferred to the emergency department because on her EKG it was found to have sinus arrhythmia with incomplete RBBB. Patient otherwise has history of gestational hypertension and was on labetalol 200 mg . The medication was resumed after the emergency room visit. Patient reports that since is being back on labetalol 200 mg 2 times a day her blood pressure has dropped on many occasions which was associated with dizziness. She also reports that she has history of anxiety disorder and was on Seroquel in the past for that.Now that she is a new mom she feels that she is overwhelmed and she is also a full-time student which caused her quite some anxiety. Patient Active Problem List Diagnosis Allergic rhinitis Anxiety Dysmenorrhea Dyssomnia Eczema Migraine Mild persistent asthma Recurrent major depressive episodes, moderate (CMS/HCC) Healthcare maintenance hypertension Precordial pain Palpitations Current Outpatient Medications on File Prior to Visit Medication Sig Dispense Refill albuterol (2.5 MG/3ML) 0.083% nebulizer solution Take 3 mL (2.5 mg) by nebulization every 4 (four) hours if needed for wheezing or shortness of breath. 75 mL 3 budesonide-formoterol (Symbicort) 80-4.5 MCG/ACT inhaler Inhale 2 puffs twie daily. Rinse mouth with water after use to reduce aftertaste and incidence of candidiasis. Do not swallow. 1 each 11 EPINEPHrine (Epipen) 0.3 MG/0.3ML injection syringe Inject 0.3 mL (0.3 mg) as directed 1 (one) timefor 1 dose. use as directed for allergic reaction and then call 911 2 each 1 labetalol (Normodyne) 200 MG tablet Take 1 tablet by mouth 2 times daily. medroxyPROGESTERone (Depo-Provera) 150 MG/ML injection Inject 1 mL (150 mg) into the shoulder, thigh, or buttocks every 3 (three) months. 1 mL 3 No current facility-administered medications on file prior to visit. Allergies Allergen Reactions Latex Other reaction(s): Acne Shellfish-Derived Products Hives Review of Systems Constitutional: Negative for appetite change, chills and diaphoresis. Respiratory: Negative for cough, choking and shortness of breath. Cardiovascular: Negative for chest pain and leg swelling. Skin: Negative for pallor and rash. Psychiatric/Behavioral: The patient is nervous/anxious. Objective BP 118/75 (BP Location: Left arm, Patient Position: Sitting, BP Cuff Size: Adult) Pulse 85 Temp97.6 ??F (36.4 ??C) (Oral) Resp 20 Ht 4' 9 (1.448 m) Wt 113 lb (51.3 kg) SpO2 97% BMI 24.45 kg/m?? Physical Exam Constitutional: General: She is not in acute distress. Appearance: Normal appearance. She is not ill-appearing, toxic-appearing or diaphoretic. Cardiovascular: Rate and Rhythm: Normal rate. Heart sounds: No murmur heard. Pulmonary: Effort: Pulmonary effort is normal. Musculoskeletal: Cervical back: No rigidity. Neurological: General: No focal deficit present. Mental Status: She is alert. Psychiatric: Mood and Affect: Mood normal. Assessment/Plan Diagnoses and all orders for this visit: Palpitations Comments: Labetalol dose decreased to 100 mg 2 times a day Patient instructed to call the office if still having palpitation/dizziness A Holter monitor is ordered. Patient will be contacted with the results of the Holter monitor Orders: - labetalol (Normodyne) 100 MG tablet; Take 1 tablet (100 mg) by mouth 2 times daily. Anxiety Comments: Trial of buspirone Patient is currently breast-feeding. The medication appears to be safe with breast-feeding. Orders: - Referral to Behavioral Health; Future - busPIRone (Buspar) 5 MG tablet; Take 1 tablet (5 mg) by mouth 2 times daily. hypertension Comments: Labetalol 100 mg 2 times a day recommended for now Call the office if blood pressure drops below 90/70 mmHg Orders: - labetalol (Normodyne) 100 MG tablet; Take 1 tablet (100 mg) by mouth 2 times daily. documented in this encounter Plan of Treatment Upcoming Encounters Date Type Department Care Team (Late st Contact Info) Description 11/29/2024 2:30 PM EDT Office Visit [facility] MED & PEDS [address] [place] [address] Guillermina Oakley MD [address] [place] [address] Scheduled Orders Name Type Priority Associated Diagnoses Orde r Schedule Holter monitor - 48 hour Cardiac Services Routine Palpitations Expected: 10/04/2024 (Approximate), Expires: 10/04/2026 Scheduled Referrals Name Type Priority Associated Diagnoses Order Schedule Referral to Behavioral Health Outpatient Referral Routine Anxiety Expected: 10/04/2024 (Approximate), Expires: 10/04/2025 documented as of this encounter Visit Diagnoses Diagnosis Palpitations- Primary Anxiety Anxiety state, unspecified hypertension documented in this encounter Additional Health Concerns Assessment Noted Time PHQ-9 Depression Total Score: 0 10/19/19 24 3:23 PM EST documented as of this encounter Care Teams Motor Vehicle Assembly Supervisor Relationship Specialty Start Date End Date Fannie Ferrell FNP [address] [place] [phone] PCP - General Family Medicine 01/21/22 documented as of this encounter
--- OUTSIDE RECORDS SUMMARY | 2024-10-15 13:16 | XMS_ITS | Encounter Summary ---
Author Organization [employer] Address [address] [facility] 7t [place] [address] Care Team Providers Care Vehicle Glass Technician Name Role Phone Fannie Ferrell Primary Care Provider [phone] Reason for Visit * Reason Onset Date Comments Nurse Triage 01/31/2024 Encounter Details Date Type Department Care Team ([facility] st Contact Info) Description 01/31/2024 Telephone [facility] MEDICINE [address] [place] [address] Fannie Ferrell FNP [address] [place], [place] [phone] Nurse Triage Social History Tobacco Use Types [...] machine. Pt is advised to come to [facility] where Provider can check BP and assess Pt status. [facility] hours given today open till 8pm, closed Wed, open Th-F 830am -400pm. Pt agreed with disposition and home care. When partner comes home to take care of baby Ptwill come to [facility]. Protocol Used: Heart Rate and Heartbeat Questions [...] 2:30 PM EDT Office Visit [facility] MED & PEDS [address] [place] [address] Guillermina Oakley MD [address] [place] [address] documented as of this encounter Visit Diagnoses Not on filedocumented in this encounter Additional Health Concerns Assessment Noted Time PHQ-9 Depression Total Score: 0 10/19/19 24 3:23 PM EST documented as of this encounter Care Teams Vehicle Glass Technician Relationship Specialty Start Date End Date Fannie Ferrell FNP [address] [place] [address] PCP - General Family Medicine 01/21/22 Jacey Jane Clipper And Turner 08/22/23 06/28/24 documented as of this encounter
--- OUTSIDE RECORDS SUMMARY | 2024-10-15 13:16 | XMS_ITS | Encounter Summary ---
Author Organization [employer] Address [address] [facility] 7t [place] [address] Care Team Providers Care Press Operator Carbon Blocks Name Role Phone Fannie Ferrell Primary Care Provider Reason for Visit * Reason Onset Date Comments Call Back Request 01/03/2024 Encounter Details Date Type Department Care Team ([facility] Contact Info) Description 01/03/2024 Telephone [facility] MED [facility] PEDS [address] [place], [place] [phone] Fannie Ferrell FNP [address] [place], [place] [phone] Call Back Request Social History Tobacco Use [...] discuss any alternatives. Please contact pt at [phone] documented in this encounter Plan of Treatment Upcoming Encounters Date Type Department Care Team ([facility] st Contact Info) Description 11/29/2024 2:30 PM EDT Office Visit [facility] [address] [place] [address] Guillermina Oakley MD [address] [place] [address] documented as of this encounter Visit Diagnoses Not on filedocumented in this encounter Additional Health Concerns Assessment Noted Time PHQ-9 Depression Total Score: 0 10/19/19 24 3:23 PM EST documented as of this encounter Care Teams Press Operator Carbon Blocks Relationship Specialty Start Date End Date Fannie Ferrell FNP [address] [place] [phone] PCP - General Family Medicine 01/21/22 Jacey Jane Litigation Coordinator 08/22/23 06/28/24 documented as of this encounter
--- OUTSIDE RECORDS SUMMARY | 2024-10-15 13:16 | XMS_ITS | Encounter Summary ---
Author Organization [employer] Address [address] [facility] 7t [place] [address] Care Team Providers Care Help Aid Name Role Phone Fannie Ferrell JASON Primary Care Provider [phone] Reason for Referral * Consultation (Routine) - Authorized Specialty Diagnoses / Procedures Referred By Mariana stanford Referred To Contact Cardiology Diagnoses Precordial pain Palpitations Reynold Aburto MD [address] [place] [address] Phone: tel: fax: [address] Phone: tel: fax: Referral ID Status Reason Start Date Expiration Date Visits Requested Visits Authorized [id number] Authorized Specialty Services Required 09/29/2024 09/29/2025 6 6 Reason for Visit * Reason Comments Walk-In high bp palpitations x3 weeks Encounter Details Date Type Department Care Team (Late st Contact Info) Description 09/29/2024 12:00 PM EST Office Visit [facility] [address] [place], [place] [phone] Reynold Aburto MD [address] [place], [place] [phone] Precordial pain (Primary Dx); Palpitations Social History [...] 11/29/2024 2:30 PM EDT Office Visit [facility] MED & PEDS [address] [place] [address] Guillermina Oakley MD [address] [facility] [place] [address] Scheduled Orders Name Type Priority Associated Diagnoses [...] documented as of this encounter Care Teams Help Aid Relationship Specialty Start Date End Date Fannie Ferrell FNP [address] [place] [address] PCP - General Family Medicine 01/21/22 documented as of this encounter
--- OUTSIDE RECORDS SUMMARY | 2024-10-15 13:16 | XMS_ITS | Encounter Summary ---
Author Organization [employer] Address [address] [facility] 7t [place] [address] Care Team Providers Care Lumber Bearer Name Role Phone Fannie Ferrell JASON Primary Care Provider [phone] Encounter Details Date Type Department Care Team (Late st Contact Info) Description 09/29/2024 Orders Only GENERIC EXTERNAL DATA DEPARTMENT Provider, Generic External Data Social History Tobacco Use Types Packs/Day Years [...] Description 11/29/2024 2:30 PM EDT Office Visit [facility] MED & PEDS [address] [place], [place] [phone] Guillermina Oakley MD [address] [place] [address] documented as of this encounter Procedures Procedure Name Priority Date/Time Associated Diagnosis Comments HIGH SENSITIVITY TROPONIN I Routine 09/29/2024 1:46 PM EST SARS COV2/INFLUENZA A/B AND RSV RNA QL NAAT Routine 09/29/2024 1:46 PM EST CBC WITH AUTO DIFFERENTIAL Routine 09/29/2024 1:46 PM EST HCG, TOTAL, QN Routine 09/29/2024 1:46 PM EST MAGNESIUM Routine 09/29/2024 1:46 PM EST COMPREHENSIVE METABOLIC PANEL Routine 09/29/2024 1:46 PM EST documented in this encounter Results * SARS-CoV-2 RNA, Influenza A/B, and RSV RNA, Ql NAAT (09/29/2024 1:46 PM EST) Influenza A PCR NEGATIVE Negative [facility] Influenza B PCR NEGATIVE Negative [facility] Resp Syncy Virus RNA Qual PCR NEGATIVE Negative [facility] SARS COV2 PCR NEGATIVE Negative [facility] Comment:All test results mus t be [...] use by authorized laboratories.Testing performed on the [employer] GeneXpert utilizingreal-time RT-PCR.All SARS CoV2 and positive influenza A/B results arereported to [facility]. 09/29/2024 1:46 PM EST 09/29/2024 1:49 PM EST Generic External Data Provider LAB MICROBIOLOGY - GENERAL ORDERABLES Final Result [facility] [address] [place] [phone] * hCG, Total, Quantitative (09/29/2024 1:46 PM EST) HCG Quantitative <2 mIU/mL [facility] Comment:Weeks post LMP Appro ximate hCG(Last Menstrual Period) Range (mIU/ml)3 - 4 weeks 9 - 1304 - 5 weeks 75 - 2,6005 - 6 weeks 850 - 20,8006 - 7 weeks 4000 - 100,2007 - 12 weeks 11,500 - 289,42107 - 16 weeks 18,300 - 137,32470 - 29 weeks (2nd trimester) 1,400 - 53,93606 - 41 weeks (3rd trimester) 940 - 60,000The Robles B- hCG assay is used for the early detection ofpregnancy; it cannot be used to diagnose any conditionunrelated to . If a B-hCG level is not supportedby the clinical evidence, results should be confirmed by analternative method (qualitative urine hCG, for example). 09/29/2024 1:46 PM EST 09/29/2024 1:49 PM EST us Generic External Data Provider LAB BLOOD ORDERAB LES Final Result Performing Organization Address [facility] Co de Phone Number [facility] [address] [place] [phone] * Magnesium (09/29/2024 1:46 PM EST) Magnesium 2.1 1.6 - 2.6 mg/dL [facility] 09/29/2024 1:46 PM EST 09/29/2024 1:49 PM EST Generic External Data Provider LAB BLOOD ORDERAB LES Final Result Performing Organization Address [facility] Phone Number [facility] [address] [place] [phone] * (ABNORMAL) Comprehensive Metabolic Panel (09/29/2024 1:46 PM EST) Sodium 141 135 - 145 mmol/L [facility] Potassium 4.2 3.3 - 5.1 mmol/L [facility] Chloride 112(H) 96 - 108 mmol/L [facility] Carbon Dioxide 21(L) 22 - 29 mmol/L [facility] Anion Gap 12 12 - 20 [facility] Urea Nitrogen (BUN) 11 9 - 16 mg/dL [facility] Creatinine, Serum 0.65 0.5 - 1.4 mg/dL [facility] Creatinine Clr Calc Pharmacy 94.1 [facility] Comment:Provided height and weight: 147.32 cm,50.349 kg.eGFR (calculated from the MDRD study equation) and eCrCl(calculated from the Cockcroft-Gault equation) are based ondifferent parameters and may not yield comparable results.If eCrCl result is absurd, please check patient'sheight/weight. Estimated Glomerular Filt Rate >60 [facility] Comment:Chronic Kidney Disea se: Estimated GFR < 60 mL/min/1.53m1Mngzns Kidney Disease: Estimated GFR < 15 mL/min/1.73m2 Glucose 88 60 - 115 mg/dL [facility] Calcium 8.8 8.4 - 10.2 mg/dL [facility] Bilirubin, Total 0.4 0.0 - 1.0 mg/dL [facility] Aspartate Amino Transferase 18 5 - 31 U/L [facility] Alanine Aminotransferase 14 0 - 31 U/L [facility] Total Protein 7.8 6.5 - 8.0 g/dL [facility] Albumin Level 4.4 3.5 - 5.0 g/dL [facility] Alkaline Phosphatase 102 39 - 117 U/L [facility] 09/29/2024 1:46 PM EST 09/29/2024 1:49 PM EST Generic External Data Provider LAB BLOOD ORDERAB LES Final Result Performing Organization Address [facility] Co de Phone Number [facility] [address] [place] [phone] * High Sensitivity Troponin I (09/29/2024 1:46 PM EST) Pathologist [facility] TROPONIN I HIGH SENSITIVITY <2.7 <3.5 - 17.0 ng/L [facility] Comment:The Robles high sens itivity Troponin-I results should beused in conjunction with other diagnostic information suchas ECG, clinical observations and information, and patientsymptoms to aid in the diagnosis of [place]. 09/29/2024 1:46 PM EST 09/29/2024 1:49 PM EST us Generic External Data Provider LAB BLOOD ORDERAB LES Final Result Performing Organization Address [facility] Co de Phone Number [facility] [address] [place] [phone] * CBC auto differential (09/29/2024 1:46 PM EST) Pathologist [facility] White Blood Count 8.2 4.8 - 10.8 X10*3/uL [facility] Red Blood Count 4.52 4.20 - 5.50 X10*6/uL [facility] Hemoglobin 14.0 12.0 - 16.0 g/dl [facility] Hematocrit 42.7 37.0 - 47.0 % [facility] Mean Corpuscular Volume 94.5 80.0 - 98.0 fL [facility] Mean Corpuscular Hemoglobin 31.0 27.0 - 33.0 pg [facility] Mean Corpuscular HGB Conc 32.8 31.0 - 35.0 g/dl [facility] Red Cell Distribution Width 13.2 11.0 - 16.0 % [facility] Platelet Count 216 160 - 400 X10*3/uL [facility] Mean Platelet Volume 11.3 9.4 - 12.3 fL [facility] Neutrophils Percent Auto 67.1 45 - 73 % [facility] Imm Gran Pct Auto 0.4 0.0 - 0.4 % [facility] Lymphocytes Percent Auto 22.0 20 - 40 % [facility] Monocytes Percent Auto 6.1 2 - 11 % [facility] Eosinophils Percent Auto 4.0 0 - 4 % [facility] Basophils Percent Auto 0.4 0 - 2 % [facility] NRBC Pct Auto 0.0 0.0 - 0.2 /100WBC [facility] Neutrophils Absolute Auto 5.5 2.0 - 8.3 x10*3/uL [facility] Imm Gran Abs Auto 0.03 0.00 - 0.03 X10*3/uL [facility] Lymphocytes Absolute Auto 1.8 1.2 - 4.9 X10*3/uL [facility] Monocytes Absolute Auto 0.5 0.1 - 1.2 X10*3/uL [facility] Eosinophils Absolute Auto 0.3 0.0 - 0.4 X10*3/uL [facility] Basophils Absolute Auto 0.0 0.0 - 0.2 X10*3/uL [facility] NRBC Abs Auto 0.000 0.0 - 0.012 X10*3/uL [facility] 09/29/2024 1:46 PM EST 09/29/2024 1:49 PM EST us Generic External Data Provider LAB BLOOD ORDERAB LES Final Result [facility] [address] [place] [phone] documented in this encounter Visit Diagnoses Not on filedocumented in this encounter Additional Health Concerns Assessment Noted Time PHQ-9 Depression Total Score: 0 10/19/19 24 3:23 PM EST documented as of this encounter Care Teams Lumber Bearer Relationship Specialty Start Date End Date Fannie Ferrell FNP [address] [place] [address] PCP - General Family Medicine 01/21/22 documented as of this encounter
== END ==
LOC: HO.CARD 11:09
PROVIDERS: PCP Internal Medicine; Visit Provider Internal Medicine
DX: R00.2 Palpitations (principal)
CPT/HCPCS: 93225

== ENCOUNTER → 2024-10-15 11:12 | Outpatient (BNV) | payer MEDICAID, SELFPAY | PROVIDERS: PCP Internal Medicine; Visit Provider Internal Medicine Cardiovascular Disease | DX: I49.1 Atrial premature depolarization (principal) | CPT/HCPCS: 93227 ==

== ENCOUNTER 2025-03-25 13:01 | Outpatient (AMB) | payer MEDICAID, SELFPAY ==
--- NOTE | 2025-03-25 13:04 | A.OFFVIS_ITS ---
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, palpitations Intake Note: Wet End Tester Operations Architect Required: No Metallurgical Engineering Technician: Metallurgical Engineering Technician Present Accompanied by: Significant Other Allergies pollen extracts (POLLEN) Allergy (Unknown, Verified 03/25/25 13:08) UNKNOWN latex Allergy (Verified 03/25/25 13:08) Rash shellfish derived (shellfish) Allergy (Verified 03/25/25 13:08) Anaphylaxis shrimp Allergy (Verified 03/25/25 13:08) Rash Medication List - Last Reconciled 03/25/25 by Pedro Wang MD albuterol sulfate 0.63 mg inhalation QID PRN buspirone 5 mg PO BID HPI Comments Details: Ms Pina was referred here for symptoms of palpitation. She is a 25-year-old female with prior history of preeclampsia with her 1st but couple years ago. Symptoms include elevated blood pressure and significant leg edema. She was then treated with labetalol and the symptoms eventually subsided and blood pressure improved. Since then after 8 months she was taken of the labetalol therapy. Over the last many months she is having symptoms of palpitation which she describes as fluttering in his chest associated severe pain. She also notices swelling in his legs and bulging veins which concerns her. She says symptoms happen mostly at nighttime. Her significant other was present at the time said that he has notice that her pulses very irregular when these things happen. She was then prescribed labetalol her usual medication preeclampsia at high dose. However given her low blood pressure she started symptoms of fainting. She is also thought to have anxiety and was prescribed buspirone. She said buspirone has helped her symptoms mildly although she continues to have these symptoms in his very bothered by them. In October she underwent a Holter monitor which showed occasional burden of PACs without any prolonged runs and with symptoms of palpitations, correlating with isolated PACs. Since then about couple of months ago due to send Been completed for her education she has cut down her caffeine intake and also has notice some improvement in his palpitations. She has no exertional symptoms of chest pain. She said her labetalol subsequently reduced to 100 mg of labetalol would continue to have symptoms of lightheadedness syncope and she has stopped taking labetalol at this point in time. She has increasing water intake but he is avoiding salt intake. She denies any orthopnea, PND, leg edema. [facility] Medical History section wound complication Asthma Family History Maternal Grandmother Heart failure Social History Alcohol intake: never Patient Tobacco Use Status: Never used Tobacco Review of Systems Const Denies chills, Denies daytime sleepiness, Denies fatigue, Denies fever(s), Denies poor appetite, Denies snoring, Denies stops breathing during sleep, Denies weight gain and Denies weight loss Eyes Denies loss of vision Card Reports chest pain, Reports chest pain at rest, Reports claudication, Reports leg edema, Denies lightheadedness, Reports palpitations, Reports dyspnea, Denies dyspnea on exertion and Denies orthopnea Resp Denies cough, Denies excessive phlegm production, Denies pain with cough, Reports dyspnea, Denies dyspnea on exertion, Denies snoring, Denies wheezing and Denies other GI Denies abdominal pain, Denies hematochezia, Denies change in bowel habits, Denies nausea and Denies vomiting Denies urinary frequency and Denies dysuria Musc Denies arthralgias and Denies muscle weakness Skin/Breast Denies nail changes and Denies rash Neuro Denies loss of vision and Denies memory loss Psych Denies depression, Denies auditory hallucinations and Denies memory loss Endo Denies fatigue and Reports palpitations Alexander/Lymph Denies easy bruising Aller/Immun Denies wheezing Physical Exam Vital Signs: Last Vital Signs Pulse 86 03/25/25 13:06 BP 118/56 L 03/25/25 13:06 BMI result Body Mass Index 23.4 Const General: cooperative, comfortable, no acute distress, alert, awake and Physically active Nutritional Appearance: thin Orientation/consciousness: patient oriented x3 Limitations: no limitations HEENT Head: Yes normocephalic and Yes atraumatic Neck Neck: Yes trachea midline, Yes supple and Yes no JVD Resp Effort & Inspection: normal respiratory effort Auscultation: clear to auscultation bilaterally Cardio Jugular venous distension: no JVD Palpation: normal PMI Rate: regular rate Rhythm: abnormal rhythm with ectopic beats Heart sounds: S1 normal heart sound present, S2 normal heart sound present, no click, no gallops, no murmurs and no rubs GI Auscultation: normal bowel sounds Skin General skin exam: no rashes or lesions noted Neuro General: patient oriented x3 and no focal motor deficits Extrem General: Yes no clubbing, cyanosis or edema Psych Appearance: grossly normal Office Procedures EKG Details: EKG shows normal sinus rhythm with sinus arrhythmias with normal EKGs [id number], Complete Assessment & Plan Assessment & Plan (1) PAC (premature atrial contraction): Code(s): I49.1 - Atrial premature depolarization Category: Medical Plan: Patient is highly symptomatic what appears to be isolated PACs. She has significant symptoms of palpitation about associated chest pain. She is very bothered by the symptoms. She could not tolerate labetalol therapy due to low blood pressure and passing out episodes. I have suggested her to increase her water in his well as salt intake. She is worried about her prior preeclampsia. She does not currently carries a diagnose of hypotension. Although I have advised her to monitor blood pressure at home. She does not report anxiety symptoms and buspirone can be considered to be tapered and discontinued. We discussed about management of PACs and benign nature of isolated PACs. Will obtain echocardiogram to evaluate for structural evaluation. Meanwhile I have taken the liberty to start on a low-dose metoprolol long-acting at 12.5 mg daily to be taken at suppertime given her symptoms mostly happen at nighttime. We discussed about stress mitigation strategies and behavioral therapy such as yoga/meditation to improve her overall anxious personality. We also discussed about discontinuing stimulants such as caffeine and avoid any use of alcohol. She showed understanding and management. Will follow up in the clinic if 3 months time, sooner p.r.n.. Thank you for allowing me to partake in his care Orders: Orders CA echo transthoracic complete Today I49.1 - Atrial premature depolarization Medications: New metoprolol succinate ER (Toprol XL) 12.5 mg (1/2 x 25 mg) PO DAILY 30 tabs 3RF I49.1 - Atrial premature depolarization Discontinued labetalol Discontinued Reason: Patient no longer taking 200 mg PO BID 90 days 180 tabs 0RF Coding Level of Care Code New Pt Level 4 (52534) Complex EM visit Add On G2211 Diagnoses PAC (premature atrial contraction) I49.1 CPT Codes EKG - CPT: 03281-[id number], Complete ([id number])
[2025-03-25 13:06] VITALS: BP 118/56; PULSE 86; BMI 23.4
--- OUTSIDE RECORDS SUMMARY | 2025-03-25 13:11 | XMS_ITS | Encounter Summary ---
Author Organization [employer] Address [address] [facility] [address]t [place] [address] Care Team Providers Care Cra Officer Name Role Phone Fannie Ferrell Primary Care Provider [phone] Reason for Visit * Reason Onset Date Comments triage 11/10/2022 Encounter Details Date Type Department Care Team ([facility] st Contact Info) Description 11/10/2022 Telephone [facility] MEDICINE [address] [place] [address] Fannie Ferrell FNP [address] [place] [address] triage Social History Tobacco Use Types Packs/Day [...] accepted this outcome Please contact pt at [phone] documented in this encounter Plan of Treatment Upcoming Encounters Date Type Department Care Team ([facility] st Contact Info) Description 03/29/2025 2:30 PM EDT Office Visit [facility] [address] [place] [address] Fannie Ferrell FNP [address] [place] [address] documented as of this encounter Visit Diagnoses Not on filedocumented in this encounter Care Teams Cra Officer Relationship Specialty Start Date End Date Fannie Ferrell FNP [address] [place] [address] PCP - General Family Medicine 01/21/22 Jacey Jane Sand Filler 08/22/23 06/28/24 documented as of this encounter
== END 2025-03-25 13:50 | disposition home or self-care (01) ==
LOC: HO.HCS 13:02
PROVIDERS: PCP Internal Medicine; Visit Provider Internal Medicine Cardiovascular Disease
DX: I49.1 Atrial premature depolarization (principal)
CPT/HCPCS: 93010; 99214

== ENCOUNTER → 2025-03-25 13:01 | Outpatient (BNVA) | payer MEDICAID, SELFPAY | PROVIDERS: PCP Internal Medicine; Visit Provider Internal Medicine Cardiovascular Disease | DX: R00.2 Palpitations (principal); I49.1 Atrial premature depolarization | CPT/HCPCS: 93005; 99212 ==

== ENCOUNTER 2025-05-01 14:06 | Outpatient (REF) | payer MEDICAID, SELFPAY ==
--- OUTSIDE RECORDS SUMMARY | 2025-05-01 17:52 | XMS_ITS | Encounter Summary ---
Author Organization [employer] Address [address] [facility] 7t [place] [address] Care Team Providers Care Master Esthetician Name Role Phone Fannie Ferrell Primary Care Provider [phone] Reason for Visit * Reason Onset Date Comments triage 11/10/2022 Encounter Details Date Type Department Care Team ([facility] st Contact Info) Description 11/10/2022 Telephone [facility] MEDICINE [address] [place] [address] Fannie Ferrell FNP [address] [place] [address] triage Social History Tobacco Use Types Packs/Day [...] accepted this outcome Please contact pt at [phone] documented in this encounter Plan of Treatment Upcoming Encounters Date Type Department Care Team (Late st Contact Info) Description 06/10/2025 9:15 AM EDT Office Visit [facility] [address] [place] [address] Fannie Ferrell FNP [address] [place] [address] 07/08/2025 1:45 PM EST Office Visit [facility] OPTOMETRY [address] [place] [address] Tara Taylor, OD [address] [place] [address] documented as of this encounter Visit Diagnoses Not on filedocumented in this encounter Care Teams Master Esthetician Relationship Specialty Start Date End Date Fannie Ferrell FNP [address] [place] [address] PCP - General Family Medicine 01/21/22 Jacey Jane Evp Strategy 08/22/23 06/28/24 documented as of this encounter
--- OUTSIDE RECORDS SUMMARY | 2025-05-01 17:52 | XMS_ITS | Encounter Summary ---
Author Organization [employer] Address 75 [facility] 7t [place] [address] Care Team Providers Care Travel Nurse Name Role Phone Fannie Ferrell Primary Care Provider [phone] Reason for Visit * Reason Onset Date Comments Med Refill 03/28/2025 Encounter Details Date Type Department Care Team (Late st Contact Info) Description 03/28/[address] [facility] MEDICINE [address] [place] [address] Fannie Ferrell FNP [address] [place], [place] [phone] History of multiple allergies; Mild persistent asthma without complication Social History Tobacco Use Types Packs/Day Years [...] encounter Miscellaneous Notes * Telephone Encounter - Dennise Blandon RN - 03/28/2025 10:31 AM EDT Med refill per pt. documented in this encounter Plan of Treatment Upcoming Encounters Date Type Department Care Team (Late st Contact Info) Description 06/10/2025 9:15 AM EDT Office Visit [facility] CHC MED & PEDS [address] [place] [address] Fannie Ferrell FNP [address] [place] [address] 07/08/2025 1:45 PM EST Office Visit [facility] OPTOMETRY [address] [place] [address] Tara Taylor, OD [address] [place] [address] documented as of this encounter Visit Diagnoses Diagnosis History of multiple allergies Mild persistent asthma without complication documented in this encounter Additional Health Concerns Assessment Noted Time PHQ-9 Depression Total Score: 0 10/19/19 24 3:23 PM EST documented as of this encounter Care Teams Travel Nurse Relationship Specialty Start Date End Date Fannie Ferrell FNP [address] [place] [address] PCP - General Family Medicine 01/21/22 documented as of this encounter
--- OUTSIDE RECORDS SUMMARY | 2025-05-01 17:52 | XMS_ITS | Encounter Summary ---
Author Organization [employer] Address 75 [facility] 7 [place] [address] Care Team Providers Care Director Of Scientific Research Name Role Phone Fannie Ferrell Primary Care Provider [phone] Reason for Visit * Reason Onset Date Comments Call Back Request 01/03/2024 Encounter Details Date Type Department Care Team ([facility] Contact Info) Description 01/03/2024 Telephone [facility] CHC MED & PEDS [address] [place], [place] [phone] Fannie Ferrell FNP [address] [place], [place] [phone] Call Back Request Social History Tobacco Use [...] discuss any alternatives. Please contact pt at [phone] documented in this encounter Plan of Treatment Upcoming Encounters Date Type Department Care Team ([facility] st Contact Info) Description 06/10/2025 9:15 AM EDT Office Visit [facility] CHC MED & PEDS [address] [place] [address] Fannie Ferrell FNP [address] [place] [address] 07/08/2025 1:45 PM EST Office Visit [facility] OPTOMETRY [address] [place] [address] Tara Taylor, OD [address] [place] [address] documented as of this encounter Visit Diagnoses Not on filedocumented in this encounter Additional Health Concerns Assessment Noted Time PHQ-9 Depression Total Score: 0 10/19/19 3:23 PM EST documented as of this encounter Care Teams Director Of Scientific Research Relationship Specialty Start Date End Date Fannie Ferrell FNP [address] [place] [address] PCP - General Family Medicine 01/21/22 Jacey Jane Designer/Writer 08/22/23 06/28/24 documented as of this encounter
--- OUTSIDE RECORDS SUMMARY | 2025-05-01 17:52 | XMS_ITS | Clinical Summary ---
Author Organization [employer] Address 75 [facility] 7t [place] [address] Care Team Providers Care Ice Guard Skating Rink Name Role Phone Fannie Ferrell JASON Primary Care Provider [phone] Allergies Active Allergy Reactions Criticality Noted Date Comments Latex 09/03/2020 Other reaction(s): Acne Shellfish-Derived Products Hives 1 Medications * This document contains information received from the source organization and may not represent a complete record from that organization. labetalol (Normodyne) 200 MG tabletIndications : hypertension [...] 60 tablet 11 10/04/19 25 026 Active EPINEPHrine (Epipen) 0.3 MG/0.3ML injection syringeIndication s:History of multiple allergies Inject 0.3 mL (0.3 mg) as directed 1 (one) time for 1 dose. use as directed for allergic reaction and then call 911 2 each 03/28/20 25 Active albuterol (2.5 MG/3ML) 0.083% nebulizer solutionIndicatio ns:Mild persistent asthma without complication Take 3 mL (2.5 mg) by nebulization Every 4-6 hours as needed for wheezing or shortness of breath. 75 mL 3 03/28/20 25 026 Active budesonide-formot rahel (Symbicort) 80-4.5 MCG/ACT inhalerIndication s:Mild persistent asthma without complication Inhale 2 puffs twie daily. Rinse mouth with water after use to reduce aftertaste and incidence of candidiasis. Do not swallow. 1 each 03/28/20 25 Active Active Problems Problem Noted Date Diagnosed [...] up visit in 1 month Migraine 09/21/2022 Severe anxiety 05/05/2020 Assessment & Plan (11/05/2024 4:07 PM EDT): During [facility] Consult [place] presenting with excessive worry/anxiety, difficulty controlling worry, anxiety/worry associated to restlessness and/or feeling keyed-up/On edge , easily fatigued , difficulty concentrating and/or mind going blank , muscle tension , and sleep disturbance difficulty falling asleep and difficulty staying asleep , Fear , and sense of dread ; for a period of 0-6 mo, for most or all symptoms in the context of and becoming a mom. Patient has been experiencing anxiety associated with a stressful everyday routine (work, school and being a mom). The recent passing of her grandma has also being triggering sxs. PCP prescribed medication for anxiety. Pt reports having positive improvement so far. Positive support received at home by her . Pt will be referred for OP services and will continue medication management with PCP. clinician will provide additional support bridging services while pt is on wait list. Dysmenorrhea 04/06/2019 Eczema 03/30/2018 Mild persistent asthma [...] Encounters Date Type Department Care Team Description 05/01/2025 Telephone [facility] MEDICINE [address] [place] [address] Fannie Ferrell FNP Call Back Request 03/29/2025 Telephone [facility] MED & PEDS [address] [place] [address] Fannie Ferrell FNP No Show 03/28/2025 Telephone [facility] MED & PEDS [address] [place], [place] [phone] Fannie Ferrell FNP Chart Prep 03/28/2025 Refill [facility] MEDICINE [address] [place] [address] Fannie Ferrell FNP History of multiple allergies; Mild persistent asthma without complication 03/28/2025 Refill [facility] MEDICINE [address] [facility] [place] [address] BarAlix FNP Mild persistent asthma without complication 03/26/2025 Travel 03/19/2025 Telephone [facility] CHC MED & PEDS [address] [place] [address] Fannie Ferrell FNP Nurse Triage 03/15/2025 Telephone [facility] CHC MED & PEDS [address] [place] [address] Fannie Ferrell FNP Nurse Triage from Last 3 Months Immunizations Immunization Administration Dates Next Due DTaP, 5 pertussis antigens 01/28/2004,,2000,05/18,2000 HPV, Quadrivalent 06/21/2012,05/05/2011,02/18/20 10 Hep A, ped/adol, 2 dose 02/27/2014,02/17/2010 Hep B, Adolescent or Pediatric 1,2000,2000,02/03 Hib (HbOC) 05/09/2001 Hib (PRP-T) 2000, 0,2000,03/09 IPV 01/28/2004, 1,2000,03/09 Influenza injectable quadriv alent preservative free 09/21/2022,09/28/2016,07/24/2015 Influenza, IIV3, injectable 07/24/2003,1 08/26/2001,09/26/2001,08/22 MMR 01/28/2004,02/07/2001 Meningococcal MCV4P ACYW-135 09/28/2016 Meningococcal MPSV4 05/05/2011 Moderna Covid-19 Vaccine 12+ 08/25/2021,07/28/20 21 Pneumococcal Conjugate PCV 7 05/09/2001, 2000,2000,02/27 Tdap 04/29/2023,09/21/2022,05/05/2011 Varicella 02/28/2009,02/07/2001 Social History Tobacco Use Types Packs/Day Years [...] 85 10/04/2024 2:09 PM EST Temperature 36.4 C (97.6 F) 10/04/2024 2:09 PM EST Respiratory Rate 20 10/04/2024 2:09 PM EST [...] Description 06/10/2025 9:15 AM EDT Office Visit [facility] CHC MED & PEDS [address] [place], [place] [phone] Fannie Ferrell, STAVE CUTTING SUPERVISOR [address] [place], [place] [phone] 07/08/2025 1:45 PM EST Office Visit [facility] OPTOMETRY [address] [place], [place] [phone] TarTara ogden, OD [address] [place], [place] [phone] Health Maintenance Due Date Last Done Comments Dental Oral Exam 2000 Dental Prophylaxis 2000 Dental X-Ray: Bitewings 2000 Disability Screening 2000 Alcohol/Substance Use Screening 2012 Family Planning (PISQ) 01/12/2015 Pneumococcal Vaccine: Pediatrics (0 to 5 Years) and At-Risk Patients (6 to 49) Years (1 of 2 - PCV) 01/12/2019 05/09/2001, 2000, 2000, Additional history exists Depression Screening 10/18/2024 10/19/2023, 10/19/19 24 SDOH Screening 10/18/2024 10/19/2023 COVID-19 Vaccine ( season) 2025 08/25/2021, 07/28/2021 Influenza Vaccine (#1) 2025 , 09/28/2016, 07/24/2015, Additional history exists Tobacco Screening 10/04/2025 10/04/2024 Dental X-Ray: Full [...] 03/19/2020 Hepatitis C Screening Completed 09/21/2022, 020 Meningococcal B Vaccine Aged Out No l onger eligible based on patient's age to complete this topic RSV under 20 months Aged Out No longe r eligible based on patient's age to complete this topic Rotavirus Vaccines Aged Out No longer eligible based on patient's age to complete this topic Procedures Procedure Name Priority Date/Time Associated Diagnosis Comments HCG, TOTAL, QN Routine 05/01/2025 2:11 PM EDT Missed menses HM PAP/HPV Routine 01/19/2023 PANORAMIC RADIOGRAPHIC IMAGE [...] Recently Relevant to Health Maintenance Results * hCG, Total, Quantitative (05/01/2025 2:11 PM EDT) HCG Quantitative 22,658 mIU/mL [facility] Comment:Weeks post LMP Appro ximate hCG(Last Menstrual Period) Range (mIU/ml)3 - 4 weeks 9 - 1304 - 5 weeks 75 - 2,6005 - 6 weeks 850 - 20,8006 - 7 weeks 4000 - 100,2007 - 12 weeks 11,500 - 289,43216 - 16 weeks 18,300 - 137,81055 - 29 weeks (2nd trimester) 1,400 - 53,32066 - 41 weeks (3rd trimester) 940 - 60,000The Robles B-hCG assay is used for the early detection ofpregnancy; it cannot be used to diagnose any conditionunrelated to . If a B-hCG level is not supportedby the clinical evidence, results should be confirmed by analternative method (qualitative urine hCG, for example). Blood Venous blood specimen / Unknown 05/01/2025 2:11 PM EDT 05/01/2025 4:03 PM EDT Fannie BARNESP LAB BLOOD ORDERABLES Final Res ult [facility] [address] [place] [address] [phone] * Hm Pap Smear (01/19/2023) Pap Negative for intraephithelial lesion or malignancy Negative for intraephithelial lesion or malignancy, Other Historical Provider HEALTH MAINTENANCE Final Result * Hepatitis C Antibody with Reflex to HCV, RNA, Quantitative, Real-Time PCR (09/21/2022 2:45 PM EST) Hepatitis C Antibody NON-REACT ROBI NON-REACT ROBI [facility] Index 0.04 <1.00 [facility] Comment: HCV antibody was non-reactive. There is no laboratory evidence of HCV infection. In most cases, no further action is required. However, if recent HCV exposure is suspected, a test for HCV RNA (test code 54787) is suggested. For additional information please refer to http://Kapture.OneRiot/faq/HXN27z4 (This link is being provided for informational/ educational purposes only.) Blood Venous blood specimen / Unknown 09/21/2022 2:45 PM EST 09/21/2022 2:45 PM EST Narrative [facility] - 09/22/2022 6:12 PM EST FASTING:UNKNOWN FASTING: UNKNOWN [facility] LAB BLOOD ORDERABLES Final Re sult [facility] [address] [facility] [facility], [place] [address] [facility] [place] [facility] [address] [facility], ([address]) [place] [address] * HIV-1/2 Antigen and Antibodies, Fourth Generation, with Reflexes (09/21/2022 2:45 PM EST) HIV Antigen/Antibody, 4th Generation NON-REAC TIVE NON-REAC TIVE [facility] Comment: HIV-1 antigen and HIV-1/HIV-2 antibodies were not detected. There is no laboratory evidence of HIV infection. PLEASE NOTE: This information has been disclosed to you from records whose confidentiality may be protected by state law. If your state requires such protection, then the state law prohibits you from making any further disclosure of the information without the specific written consent of the person to whom it pertains, or as otherwise permitted by law. A general authorization for the release of medical or other information is NOT sufficient for this purpose. For additional information please refer to http://Kapture.OneRiot/faq/FQB615 (This link is being provided for informational/ educational purposes only.) The performance of this assay has not been clinically validated in patients less than 2 years old. Blood Venous blood specimen / Unknown 09/21/2022 2:45 PM EST 09/21/2022 2:45 PM EST Narrative [facility] - 09/22/2022 6:12 PM EST FASTING:UNKNOWN FASTING: UNKNOWN [facility] LAB BLOOD ORDERABLES Final Re sult [facility] [address] [facility] [place] [address] [facility] [place] [facility] [address] [facility], ([address]) [place] [address] * (ABNORMAL) Lipid Panel, Standard (09/21/2022 2:45 PM EST) [facility] Cholesterol, Total 164 <200 mg/dL [facility] [place] [facility] HDL Cholesterol 49(L) > OR = 50 mg/dL [facility] [place] [facility] Triglycerides 70 <150 mg/dL [facility] [place] [facility] LDL Cholesterol 99 mg/dL (calc) [facility] Comment: Reference range: <100 Desirable range <100 mg/dL for primary prevention; <70 mg/dL for patients with CHD or diabetic patients with > or = 2 CHD risk factors. LDL-C is now calculated using the Yobani-Finley calculation, which is a validated novel method providing better accuracy than the Friedewald equation in the estimation of LDL-C. Yobani COKER et al. ASIA. 2013;310(19): 8757-6434 (http://education.Fundbase.CyOptics/faq/FDK389) Chol/HDLC Ratio 3.3 <5.0 (calc) [facility] [place] [facility] Non-HDL Cholesterol 115 <130 mg/dL (calc) [facility] [place] [facility] Comment: For patients with diabetes plus 1 major ASCVD risk factor, treating to a non-HDL-C goal of <100 mg/dL (LDL-C of <70 mg/dL) is considered a therapeutic option. Blood Venous blood specimen / Unknown 09/21/2022 2:45 PM EST 09/21/2022 2:45 PM EST Narrative [facility] - 09/22/2022 6:12 PM EST FASTING:UNKNOWN FASTING: UNKNOWN [facility] STAVE CUTTING SUPERVISOR LAB BLOOD ORDERABLES Final Re sult [facility] [address] [facility], [address]rd [address], [place] [address] [facility] [address] [facility], ([address]) [place] [address] from Last 3 Months or Most Recently Relevant to Health Maintenance Insurance [facility] C[facility] MEDICAID STAND ADULT [facility] * Guarantor: Aj Mistry Account Type Relation to Patient Date of Phone Billing Address Personal/Family Self [phone] Care Teams Ice Guard Skating Rink Relationship Specialty Start Date End Date Fannie Ferrell FNP [address] [place] [address] PCP - General Family Medicine 01/21/22
--- OUTSIDE RECORDS SUMMARY | 2025-05-01 17:52 | XMS_ITS | Encounter Summary ---
Author Organization [facility] Address [address] [place] [address] Phone Care Team Providers Care Wireless Field Technician Name Role Phone Unavailable Primary Care Provider Unavailabl e Encounter Details Date Type Department Care Team (Late st Contact Info) Description 03/31/2017 Conversion Encounter [facility] - [address] [address] Social History Tobacco Use Types Packs/Day Years Used Date Smoking Tobacco: Never Assessed Comments Unknown Sex and Gender Information Value Date Recorded Sex Assigned at Not on file Legal Sex Female 4:18 PM EDT Gender Identity Not on file Sexual Orientation Not on file documented as of this encounter Plan of Treatment Not on file documented as of this encounter Visit Diagnoses Not on filedocumented in this encounter
--- OUTSIDE RECORDS SUMMARY | 2025-05-01 17:52 | XMS_ITS | Clinical Summary ---
Author Organization [facility] Address [address] [place] [phone] Phone Care Team Providers Care Heavy Rail Train Operator Name Role Phone Unavailable Primary Care Provider Unavailabl e Immunizations Immunization Administration Dates Next Due DTaP 5 01/28/2004, 1,2000,2000 ,2000 Hep B, ped/adol 2000,2000,2000 Hib (PRP-T) 2000,2000,2000 ,2000 IPV 01/28/2004,2000,2000 ,2000 Influenza, injectable, trivalent 07/05/2006 MMR 01/28/2004,02/07/2001 Pneumococcal Conjugate 05/09/2001,2000,11/1999,2000 Varicella 02/07/2001 Family History Relation Name Status Comments Father Alive Father: Alive a nd well Half-Brother Alive Half brother (M ): Asthma and ADD Mother Alive Mother: Alive a nd well Social History Tobacco Use Types Packs/Day Years Used Date Smoking Tobacco: Never Assessed Comments Unknown Sex and Gender Information Value Date Recorded Sex Assigned at Not on file Legal Sex Female 4:18 PM EDT Gender Identity Not on file Sexual Orientation Not on file Plan of Treatment Health Maintenance Due Date Last Done Comments Varicella Vaccines (2 of 2 - 2-dose childhood series) 02/25/2004 02/07/2001 DTaP,Tdap,and Td Vaccines (6 - Tdap) 01/12/2011 01/28/2004, 05/09/2001, 2000, Additional history exists HPV Vaccines (1 - 3-dose series) 01/12/2015 Influenza Vaccines (#1) 2025 07/05/2006 COVID-19 Vaccine ( season) 2025 Hepatitis B Vaccines Completed 2000, 2000, 2000 HIB Vaccines Aged Out 2000, 12/1999, 2000, Additional history exists No longer eligible based on patient's age to complete this topic Pneumococcal Vaccine Completed 05/09/2001, 2000, 2000, Additional history exists IPV Vaccines Completed 01/28/2004, 10/13, 2000, Additional history exists MMR Vaccines Completed 01/28/2004, 02/07/2001 Hepatitis A Vaccines Aged Out No long er eligible based on patient's age to complete this topic Men B Vaccine Aged Out No longer elig ible based on patient's age to complete this topic Meningococcal Vaccine Aged Out No vu pau eligible based on patient's age to complete this topic
--- OUTSIDE RECORDS SUMMARY | 2025-05-01 17:52 | XMS_ITS | Encounter Summary ---
Author Organization [employer] Address 75 [facility] 7t [place] [address] Care Team Providers Care Software Testing Specialist Name Role Phone Fannie Ferrell Primary Care Provider [phone] Reason for Visit * Reason Onset Date Comments Referral 12/12/2023 Encounter Details Date Type Department Care Team ([facility] st Contact Info) Description 12/12/2023 Telephone [facility] MEDICINE [address] [place] [address] Fannie Ferrell FNP [address] [place], [place] [phone] Referral Social History Tobacco Use Types Packs/Day [...] her know that I placed referral to [facility], but they currently have a wait list that is scheduling in fall or winter of 2023. If she has any current vision concerns please have her call to be triaged sooner ,Thank you. * Telephone Encounter - Westley Anderson - 12/12/2023 12:14 PM EDT TC from pt requesting new referral: Address: [address] [place] [address] Facility Name: [facility] Type of Specialist: Manufacturing Cost Estimator documented in this encounter Plan of Treatment Upcoming Encounters Date Type Department Care Team ([facility] Contact Info) Description 06/10/2025 9:15 AM EDT Office Visit [facility] CHC MED & PEDS [address] [place], [place] [phone] Fannie Ferrell FNP [address] [place] [address] 07/08/2025 1:45 PM EST Office Visit [facility] OPTOMETRY [address] [place] [address] TarkaTara, OD [address] [place] [address] documented as of this encounter Visit Diagnoses Diagnosis Healthcare maintenance- Primary documented in this encounter Additional Health Concerns Assessment Noted Time PHQ-9 Depression Total Score: 0 10/19/19 24 3:23 PM EST documented as of this encounter Care Teams Software Testing Specialist Relationship Specialty Start Date End Date Fannie Ferrell FNP [address] [place] [address] PCP - General Family Medicine 01/21/22 Jacey Jane Computer Patternmaker 08/22/23 06/28/24 documented as of this encounter
--- OUTSIDE RECORDS SUMMARY | 2025-05-01 17:53 | XMS_ITS | Encounter Summary ---
Author Organization [employer] Address [address] [facility] 7t [place] [address] Care Team Providers Care Flarer Name Role Phone Fannie Ferrell Primary Care Provider [phone] Reason for Visit * Reason Onset Date Comments Call Back Request 05/01/2025 Encounter Details Date Type Department Care Team ([facility] st Contact Info) Description 05/01/2025 Telephone [facility] MEDICINE [address] [place] [address] Fannie Ferrell FNP [address] [place], [place] [phone] Call Back Request Social History Tobacco Use [...] Telephone Encounter - Livia Santos RN - 05/01/2025 10:31 AM EDT To pt. Pt identity verified with first and last name and date of . Pt stated that she had a positive test at home after missing menses, not currently on prescribed contraception and isstill currently child. Pt stated that previous complications in previous had multiple complications and would like to discuss further with OB provider. Author advised due to pt reporting positive home test, hcg blood test is ordered and advised of locations it can be completed, pt stated will complete today. Author advised for pt to reach out to previous OB office to see if they are able to discuss further with pt. Author advised will send FYI to PCP to see if PCP would like appt or telehealth, as pt was stating she spoke with another external OBGYN office whom she has not seen in the past stated that they cannot accept pt to their services due to pt havinga previously complications L+D with first and having history of palpitations. * Telephone Encounter - Vadim Davis - 05/01/2025 8:47 AM EDT Tc from pt stating she had a positive at home test and would like to discuss options. Contact pt at [phone] documented in this encounter Plan of Treatment Upcoming Encounters Date Type Department Care Team (Late st Contact Info) Description 06/10/2025 9:15 AM EDT Office Visit [facility] CHC MED & PEDS [address] [place], [place] [phone] Fannie Ferrell FNP [address] [place], [place] [phone] 07/08/2025 1:45 PM EST Office Visit [facility] OPTOMETRY [address] [place], [place] [phone] TarTara ogden, OD [address] [place], [place] [phone] documented as of this encounter Procedures Procedure Name Priority Date/Time Associated Diagnosis Comments HCG, TOTAL, QN Routine 05/01/2025 2:11 PM EDT Missed menses documented in this encounter Results * hCG, Total, Quantitative (05/01/2025 2:11 PM EDT) HCG Quantitative 22,658 mIU/mL [facility] Comment:Weeks post LMP Appro ximate hCG(Last Menstrual Period) Range (mIU/ml)3 - 4 weeks 9 - 1304 - 5 weeks 75 - 2,6005 - 6 weeks 850 - 20,8006 - 7 weeks 4000 - 100,2007 - 12 weeks 11,500 - 289,87346 - 16 weeks 18,300 - 137,52233 - 29 weeks (2nd trimester) 1,400 - 53,36138 - 41 weeks (3rd trimester) 940 - [...] 2:11 PM EDT 05/01/2025 4:03 PM EDT us Fannie GOMEZ LAB BLOOD ORDERABLES Final Res ult [facility] [address] [place] [address] [phone] documented in this encounter Visit Diagnoses Diagnosis Missed menses documented in this encounter Additional Health Concerns Assessment Noted Time PHQ-9 Depression Total Score: 0 10/19/19 24 3:23 PM EST documented as of this encounter Care Teams Flarer Relationship Specialty Start Date End Date Fannie Ferrell FNP [address] [place] [address] PCP - General Family Medicine 01/21/22 documented as of this encounter
--- OUTSIDE RECORDS SUMMARY | 2025-05-01 17:53 | XMS_ITS | Encounter Summary ---
Author Organization [employer] Address [address] [facility] 7t [place] [address] Care Team Providers Care Billing Representative Name Role Phone Fannie Ferrell Primary Care Provider [phone] Reason for Visit * Reason Onset Date Comments Nurse Triage 09/27/2024 Encounter Details Date Type Department Care Team ([facility] st Contact Info) Description 09/27/2024 Telephone [facility] MEDICINE [address] [place] [address] Fannie Ferrell FNP [address] [place], [place] [phone] Nurse Triage Social History Tobacco Use Types [...] Please also assist with rescheduling appt. From canal structure operator: is not on ANY BP medication at [...] she states she will probably go to [facility] ED. I will send this note [...] Description 06/10/2025 9:15 AM EDT Office Visit [facility] CHC MED & PEDS [address] [place], [place] [phone] Fannie Ferrell FNP [address] [place], [place] [phone] 07/08/2025 1:45 PM EST Office Visit [facility] OPTOMETRY [address] [place], [place] [phone] Tara Taylor, OD [address] [place] [address] documented as of this encounter Visit Diagnoses Not on filedocumented in this encounter Additional Health Concerns Assessment Noted Time PHQ-9 Depression Total Score: 0 10/19/19 24 3:23 PM EST documented as of this encounter Care Teams Billing Representative Relationship Specialty Start Date End Date Fannie Ferrell FNP [address] [place], [place] [phone] PCP - General Family Medicine 01/21/22 documented as of this encounter
--- OUTSIDE RECORDS SUMMARY | 2025-05-01 17:53 | XMS_ITS | Encounter Summary ---
Author Organization [employer] Address [address] [facility] 7t [place] [address] Care Team Providers Care Nurse Coordinator Name Role Phone Fannie Ferrell BOXING INSTRUCTOR Primary Care Provider [phone] Reason for Visit * Reason Onset Date Comments Med Refill 03/28/2025 Encounter Details Date Type Department Care Team (Late st Contact Info) Description 03/28/2025 Refill [facility] MEDICINE [address] [place] [address] [facility] [address] [place], [place] [phone] Mild persistent asthma without complication Social History [...] Description 06/10/2025 9:15 AM EDT Office Visit [facility] CHC MED & PEDS [address] [place] [address] Fannie Ferrell FNP [address] [place] [address] 07/08/2025 1:45 PM EST Office Visit [facility] OPTOMETRY [address] [place] [address] Tarka, Tara, OD [address] [place] [address] documented as of this encounter Visit Diagnoses Diagnosis Mild persistent asthma without complication documented in this encounter Additional Health Concerns Assessment Noted Time PHQ-9 Depression Total Score: 0 10/19/19 24 3:23 PM EST documented as of this encounter Care Teams Nurse Coordinator Relationship Specialty Start Date End Date Fannie Ferrell FNP [address] [place] [address] PCP - General Family Medicine 01/21/22 documented as of this encounter
--- OUTSIDE RECORDS SUMMARY | 2025-05-01 17:53 | XMS_ITS | Encounter Summary ---
Author Organization [employer] Address [address] [facility] 7t [place] [address] Care Team Providers Care Student Services Dean Name Role Phone Fannie Ferrell Primary Care Provider [phone] Reason for Visit * Reason Onset Date Comments Nurse Triage 01/31/2024 Encounter Details Date Type Department Care Team ([facility] st Contact Info) Description 01/31/2024 Telephone [facility] MEDICINE [address] [place] [address] Fannie Ferrell FNP [address] [place], [place] [phone] Nurse Triage Social History Tobacco Use Types [...] machine. Pt is advised to come to [facility] where Provider can check BP and assess Pt status. [facility] hours given today open till 8pm, closed Wed, open Th-F 830am -400pm. Pt agreed with disposition and home care. When partner comes home to take care of baby Ptwill come to [facility]. Protocol Used: Heart Rate and Heartbeat [...] You become worse * Telephone Encounter - Youcameron Kimball - 01/31/2024 12:36 PM EDT Symptom: Chest Pain - Adult Outcome: Transfer to a nurse or provider NOW! Reason: Trouble breathing The caller accepted this outcome documented in this encounter Plan of Treatment Upcoming Encounters Date Type Department Care Team (Late st Contact Info) Description 06/10/2025 9:15 AM EDT Office Visit [facility] CHC MED & PEDS [address] [place], [place] [phone] Fannie Ferrell FNP [address] [place], [place] [phone] 07/08/2025 1:45 PM EST Office Visit [facility] OPTOMETRY [address] [place] [address] TarkaTara, OD [address] [place] [address] documented as of this encounter Visit Diagnoses Not on filedocumented in this encounter Additional Health Concerns Assessment Noted Time PHQ-9 Depression Total Score: 0 10/19/19 24 3:23 PM EST documented as of this encounter Care Teams Student Services Dean Relationship Specialty Start Date End Date Fannie Ferrell FNP [address] [place] [address] PCP - General Family Medicine 01/21/[address] Roller Engineer 08/22/23 06/28/24 documented as of this encounter
== END 2025-05-01 14:07 | disposition home or self-care (01) ==
LOC: HO.HHCL 14:06
PROVIDERS: PCP Registered Nurse; Visit Provider Registered Nurse
DX: N92.6 Irregular menstruation, unspecified (principal)
CPT/HCPCS: 36415; 84702

== ENCOUNTER 2025-07-19 10:36 | Outpatient (REF) | payer MEDICAID, SELFPAY ==
[2025-07-19 11:27] LABS: MANUAL DIFF FLAG NO
[2025-07-19 11:39] LABS: Hematocrit 41.9 % (37.0-47.0); Hemoglobin 13.2 g/dl (12.0-16.0); Imm Gran Abs Auto 0.01 X10*3/uL (0.00-0.03); Imm Gran Pct Auto 0.1 % (0.0-0.4); Lymphocytes Absolute Auto 1.6 X10*3/uL (1.2-4.9); Mean Corpuscular HGB Conc 31.5 g/dl (31.0-35.0); Mean Corpuscular Hemoglobin 31.2 pg (27.0-33.0); Mean Corpuscular Volume 99.1 fL (80.0-98.0); NRBC Abs Auto 0.000 X10*3/uL (0.0-0.012); NRBC Pct Auto 0.0 /100WBC (0.0-0.2); Platelet Count 207 X10*3/uL (160-400); Red Blood Count 4.23 X10*6/uL (4.20-5.50); White Blood Count 7.7 X10*3/uL (4.8-10.8)
--- OUTSIDE RECORDS SUMMARY | 2025-07-19 12:35 | XMS_ITS | Encounter Summary ---
Author Organization [employer] Address [address] [facility] [address] [place] [address] Care Team Providers Care Customer Service Specialist Name Role Phone Fannie Ferrell Primary Care Provider [phone] Reason for Visit * Reason Onset Date Comments triage 11/10/2022 Encounter Details Date Type Department Care Team ([facility] st Contact Info) Description 11/10/2022 Telephone [facility] MEDICINE [address] [place] [address] Fannie Ferrell FNP [address] [place] [address] triage Social History Tobacco Use Types Packs/Day [...] accepted this outcome Please contact pt at [phone] documented in this encounter Plan of Treatment Not on file documented as of this encounter Visit Diagnoses Not on filedocumented in this encounter Care Teams Customer Service Specialist Relationship Specialty Start Date End Date Fannie Ferrell FNP [address] [place] [address] PCP - General Family Medicine 01/21/22 Jacey Jane Unix Manager 08/22/23 06/28/24 documented as of this encounter
--- OUTSIDE RECORDS SUMMARY | 2025-07-19 12:35 | XMS_ITS | Encounter Summary ---
Author Organization [employer] Address [address] [facility] [address] [place] [address] Care Team Providers Care Internal Medicine Hospitalist Name Role Phone Fannie Ferrell Primary Care Provider [phone] Reason for Visit * Reason Onset Date Comments Referral 12/12/2023 Encounter Details Date Type Department Care Team ([facility] st Contact Info) Description 12/12/2023 Telephone [facility] MEDICINE [address] [place] [address] Fannie Ferrell FNP [address] [place], [place] [phone] Referral Social History Tobacco Use Types Packs/Day [...] her know that I placed referral to [facility], but they currently have a wait list that is scheduling in fall or winter of 2023. If she has any current vision concerns please have her call to be triaged sooner ,Thank you. * Telephone Encounter - Westley Anderson - 12/12/2023 12:14 PM EDT TC from pt requesting new referral: Address: [address] [place] [address] Facility Name: [facility] Type of Specialist: Electric Motor Assembler And Tester documented in this encounter Plan of Treatment Not on file documented as of this encounter Visit Diagnoses Diagnosis Healthcare maintenance- Primary documented in this encounter Additional Health Concerns Assessment Noted Time PHQ-9 Depression Total Score: 0 10/19/19 3:23 PM EST documented as of this encounter Care Teams Internal Medicine Hospitalist Relationship Specialty Start Date End Date Fannie Ferrell FNP [address] [place] [address] PCP - General Family Medicine 01/21/22 Jacey Jane Molder Punch 08/22/23 06/28/24 documented as of this encounter
--- OUTSIDE RECORDS SUMMARY | 2025-07-19 12:35 | XMS_ITS | Clinical Summary ---
Author Organization [facility] Address [address] [place] [phone] Phone Care Team Providers Care Horse Trekking Guide Name Role Phone Unavailable Primary Care Provider [...]
--- OUTSIDE RECORDS SUMMARY | 2025-07-19 12:35 | XMS_ITS | Clinical Summary ---
Author Organization [employer] Address [address] [facility] 7t [place] [address] Care Team Providers Care Supervisor Photoengraving Name Role Phone Fannie Ferrell JASON Primary Care Provider [phone] Allergies Active Allergy Reactions Criticality Noted Date Comments Latex 09/03/2020 Other reaction(s): Acne Shellfish Protein-Containing Drug Products Hives 08/20/2010 Medications * This document contains information received from the source organization and may not represent a complete record from that organization. medroxyPROGESTERo ne (Depo-Provera) 150 MG/ML injectionIndicati ons:On Depo-Provera for contraception Inject 1 mL (150 mg) into the shoulder, thigh, or buttocks every 3 (three) months. 1 mL 3 10/19/19 24 Active busPIRone (Buspar) 5 MG tabletIndications :Anxiety Take 1 tablet (5 mg) by mouth 2 times daily. 60 tablet 11 10/04/19 25 026 Active EPINEPHrine (Epipen) 0.3 MG/0.3ML injection syringeIndication s:History of multiple allergies Inject 0.3 mL (0.3 mg) as directed 1 (one) time for 1 dose. use as directed for allergic reaction and then call 911 2 each 1 03/28/20 25 Active metoprolol succinate XL (Toprol-XL) 25 MG 24 hr tablet Take 0.5 tablets by mouth Once per day. 03/25/20 25 Active budesonide-formot rahel (Symbicort) 80-4.5 MCG/ACT inhalerIndication s:Mild persistent asthma without complication Inhale 2 puffs twie daily. Rinse mouth with water after use to reduce aftertaste and incidence of candidiasis. Do not swallow. 1 each 06/14/20 Active albuterol 108 (90 Base) MCG/ACT inhalerIndication s:Mild persistent asthma without complication Inhale 2 puffs every 4 (four) hours if needed for wheezing. 18 g 06/14/20 Active albuterol (2.5 MG/3ML) 0.083% nebulizer solutionIndicatio ns:Mild persistent asthma without complication Take 3 mL (2.5 mg) by nebulization Every 4-6 hours as needed for wheezing or shortness of breath. 75 mL 3 06/14/20 Active Active Problems Problem Noted Date Diagnosed Date Localized edema 06/16/2025 Assessment & Plan (06/16/2025 6:52 PM EST): - Describes intermittent edema BLE since approx 2 years ago. Exam wnl today. Improves with lymphatic drainage. No red flag symptoms. BP well controlled today. Encouraged to cont to monitor. Encouraged to complete pending cardiac echo. F/up precautions. Precordial pain 09/29/2024 Assessment & Plan (09/29/2024 [...] maintenance 10/19/2023 Overview (10/19/2023): Last PE: 10/19/23 Primary hypertension 10/19/2023 Assessment & Plan (06/16/2025 6:56 PM EST): History of hypertension Continue with metoprolol 12.5mg daily Following with [facility] Cards Well controlled, cont with current regimen Previous treatment: - labetalol 100-200mg BID Assessment & Plan (10/19/2023 3:15 PM EST): Continue labetalol 200mg BID Cont lifestyle interventions, low stress as able May consider taper at follow up visit in 1 month Migraine 09/21/2022 Anxiety 05/05/2020 Assessment & Plan (06/16/2025 6:55 PM EST): - Cont with buspirone 5mg BID Assessment & Plan (11/05/2024 4:07 PM EDT): During [facility] Consult Aj presenting with excessive worry/anxiety, difficulty controlling worry, [...] 04/06/2019 Eczema 03/30/2018 Mild persistent asthma 03/30/2018 Assessment & Plan (06/16/2025 6:49 PM EST): -Maintenance: symbicort 2 puffs BID. Rinse mouth after each use -Rescue: albuterol PRN (neb and HFA) -Avoid allergens/triggers as much as possible Assessment & Plan (10/05/2022 7:41 PM EST): -Encouraged use of symbicort 2 puffs BID as well as PRN. Rinse mouth after each use -DME request for Nebulizer machine -PFTs ordered for further eval -Avoid allergens/triggers as much as possible Recurrent major depressive episodes, moderate (C MS/HCC) 10/23/2015 Allergic rhinitis 06/21/2012 Dyssomnia 06/21/2012 Encounters Date Type Department Care Team Description 06/14/2025 11:30 AM EDT Office Visit [facility] [address] [place] [address] Fannie Ferrell FNP Excessive bleeding in premenopausal period (Primary Dx); History of anemia; Mild persistent asthma without complication; Localized edema; Primary hypertension; Anxiety 06/14/2025 Patient Outreach [address] [phone] Fannie Ferrell FNP Care Coordination (CHW outreach for SDOH housing search-referral completed ) 06/14/2025 Telephone [facility] [address] [place] [address] Fannie Ferrell FNP 06/14/2025 Travel 06/07/2025 Telephone [facility] [address] [place] [address] Fannie Ferrell FNP Chart Prep 05/06/2025 Telephone [facility] [address] [place] [address] Fannie Ferrell FNP PCP Contact 05/01/[address] [address] Fannie Ferrell FNP Call Back Request from Last 3 Months Immunizations Immunization Administration Dates Next Due DTaP, 5 pertussis antigens 01/28/2004,,2000,05/18,2000 HPV, Quadrivalent 06/21/2012,05/05/2011,02/18/20 10 Hep A, ped/adol, 2 dose 02/27/2014,02/17/2010 Hep B, Adolescent or Pediatric 1,2000,2000,02/03 Hib (HbOC) 05/09/2001 Hib (PRP-T) 2000, 0,2000,03/09 IPV 01/28/2004, 1,2000,03/09 Influenza injectable quadriv alent preservative free 09/21/2022,09/28/2016,07/24/2015 Influenza, IIV3, injectable 07/05/2006,1 09/24/2002,06/26/2002,09/26,08/22/2001 Influenza, Split (incl. pedro fied surface antigen) 06/21/2012 MMR 01/28/2004,02/07/2001 Meningococcal MCV4P ACYW-135 09/28/2016 Meningococcal MPSV4 05/05/2011 Moderna Covid-19 Vaccine 12+ 08/25/2021,07/28/20 Pneumococcal Conjugate PCV 7 05/09/2001, 2000,2000,02/27 Tdap [...] housing situation today? I have antwanangie segal 06/14/[address] you li ve. Do you have problems with any of the following? None of the above 06/14/2025 Food Insecurity Answer Date Recorded Within the past 12 months, y ou worried that your food would run out before you got money to buy more: Never True 06/14/2025 Within the past 12 months,th e food you bought just didn't last and you didn't have enough money to get more: Never True Transportation Answer Date Recorded In the past 12 months, has l ack of transportation kept you from medical appts, meetings, work or from getting things needed for daily living? No 06/14/2025 Utilities Answer Date Recorded In the past 12 months, has t he electric, gas, oil or water company threatened to shut off services in your home? Yes 06/14/2025 Depression Answer Date Recorded Patient Health Questionnaire-2 Score 0 10/19/2023 Internet Access Answer Date Recorded Internet Access Q1 Yes 06/14/2025 Internet Access Q2 Not on file 06/14/2025 Comments No Sex and Gender Information Value Date Recorded Sex Assigned at Female 06/14/2022 10:16 AM EDT Legal Sex Female 10:16 AM EDT Gender Identity Female 06/14/2022 10:16 AM EDT Sexual Orientation Straight 06/14/2022 10 :16 AM EDT Last Filed Vital Signs Vital Sign Reading Time Taken Comments Blood Pressure 118/62 06/14/2025 11:54 AM EDT Pulse 64 06/14/2025 11:54 AM EDT Temperature 36.6 C (97.9 F) 06/14/2025 11:54 AM EDT Respiratory Rate 16 06/14/2025 11:54 AM EDT Oxygen Saturation 97% 10/04/2024 2:09 PM EST Inhaled Oxygen Concentration - - Weight 43.5 kg (96 lb) 06/14/2025 11:54 AM EDT Height 144.8 cm (4' 9 ) 06/14/2025 11:54 AM EDT Body Mass Index 20.77 06/14/2025 11:54 AM EDT Plan of Treatment Health Maintenance Due Date Last Done Comments Dental Oral Exam 2000 Dental Prophylaxis 2000 Dental X-Ray: Bitewings 2000 Family Planning (PISQ) 01/12/2015 Pneumococcal Vaccine: Pediatrics (0 to 5 Years) and At-Risk Patients (6 to 49) Years (1 of 2 - PCV) 01/12/2019 05/09/2001, 2000, 2000, Additional history exists Depression Screening 10/18/2024 10/19/2023, 10/19/19 24 Pap Smear 01/19/2026 01/19/2023 Influenza Vaccine (#1) 2026 3, 09/28/2016, 07/24/2015, Additional history exists Postponed from 04/15/2025 (Patient Refused) Alcohol/Substance Use Screening 06/14/2026 06/14/2025 Disability Screening 06/14/2026 06/14/2025 SDOH Screening 06/14/2026 06/14/2025 Tobacco Screening 06/14/2026 06/14/2025 COVID-19 Vaccine ( season) 2026 08/25/2021, 07/28/2021 Postponed from 04/15/2025 (Patient Refused) Dental X-Ray: Full Mouth 09/09/2026 09/08/2023, 10/14 Lipid Panel 09/21/2027 09/21/2022, 03/19/2020 DTaP/Tdap/Td Vaccines [...] Procedure Name Priority Date/Time Associated Diagnosis Comments CBC WITH AUTO DIFFERENTIAL Routine 07/19/2025 10:55 AM EST History of anemia Excessive bleeding in premenopausal period HCG, TOTAL, QN Routine 05/01/2025 2:11 PM [...] Recently Relevant to Health Maintenance Results * (ABNORMAL) CBC auto differential (07/19/2025 10:55 AM EST) White Blood Count 7.7 4.8 - 10.8 X10*3/uL [facility] Red Blood Count 4.23 4.20 - 5.50 X10*6/uL [facility] Hemoglobin 13.2 12.0 - 16.0 g/dl [facility] Hematocrit 41.9 37.0 - 47.0 % [facility] Mean Corpuscular Volume 99.1(H) 80.0 - 98.0 fL [facility] Mean Corpuscular Hemoglobin 31.2 27.0 - 33.0 pg [facility] Mean Corpuscular HGB Conc 31.5 31.0 - 35.0 g/dl [facility] Red Cell Distribution Width 12.9 11.0 - 16.0 % [facility] Platelet Count 207 160 - 400 X10*3/uL [facility] Mean Platelet Volume 11.8 9.4 - 12.3 fL [facility] Neutrophils Percent Auto 70.6 45 - 73 % [facility] Imm Gran Pct Auto 0.1 0.0 - 0.4 % [facility] Lymphocytes Percent Auto 21.4 20 - 40 % [facility] Monocytes Percent Auto 6.8 2 - 11 % [facility] Eosinophils Percent Auto 0.8 0 - 4 % [facility] Basophils Percent Auto 0.3 0 - 2 % [facility] NRBC Pct Auto 0.0 0.0 - 0.2 /100WBC [facility] Neutrophils Absolute Auto 5.4 2.0 - 8.3 x10*3/uL [facility] Imm Gran Abs Auto 0.01 0.00 - 0.03 X10*3/uL [facility] Lymphocytes Absolute Auto 1.6 1.2 - 4.9 X10*3/uL [facility] Monocytes Absolute Auto 0.5 0.1 - 1.2 X10*3/uL [facility] Eosinophils Absolute Auto 0.1 0.0 - 0.4 X10*3/uL [facility] Basophils Absolute Auto 0.0 0.0 - 0.2 X10*3/uL [facility] NRBC Abs Auto 0.000 0.0 - 0.012 X10*3/uL [facility] Blood Venous blood specimen / Unknown 07/19/2025 10:55 AM EST 07/19/2025 11:21 AM EST us Fannie Ferrell SUSTAINABILITY COORDINATOR LAB BLOOD ORDERABLES Final Res ult [facility] [address] [place] [address] [phone] * hCG, Total, Quantitative (05/01/2025 2:11 PM EDT) HCG Quantitative 22,658 mIU/mL [facility] Comment:Weeks post LMP Appro ximate hCG(Last Menstrual Period) Range (mIU/ml)3 - 4 weeks 9 - 1304 - 5 weeks 75 - 2,6005 - 6 weeks 850 - 20,8006 - 7 weeks 4000 - 100,2007 - 12 weeks 11,500 - 289,34166 - 16 weeks 18,300 - 137,16382 - 29 weeks (2nd trimester) 1,400 - 53,50826 - 41 weeks (3rd trimester) 940 - [...] PM EDT 05/01/2025 4:03 PM EDT Fannie Ferrell [facility] LAB BLOOD ORDERABLES Final Res ult [facility] [address] [place] [address] [phone] * Hm Pap Smear (01/19/2023) Pap Negative for intraephithelial lesion or malignancy Negative for intraephithelial lesion or malignancy, Other Historical Provider HEALTH MAINTENANCE Final Result * Hepatitis C Antibody with Reflex to HCV, RNA, Quantitative, Real-Time PCR (09/21/2022 2:45 PM EST) Hepatitis C Antibody NON-REACT ROBI NON-REACT ROBI [facility] [place] [employer] [facility] Index 0.04 <1.00 [facility] [place] [employer] [facility] Comment: HCV antibody was non-reactive. There is no laboratory evidence of HCV infection. In most cases, no further action is required. However, if recent HCV exposure is suspected, a test for HCV RNA (test code 39367) is suggested. For additional information please refer to http://education.[employer]/faq/COF96c4 (This link is being provided for informational/ educational purposes only.) Blood Venous blood specimen / Unknown 09/21/2022 2:45 PM EST 09/21/2022 2:45 PM EST Narrative [facility] - 09/22/2022 6:12 PM EST FASTING:UNKNOWN FASTING: UNKNOWN [facility] LAB BLOOD ORDERABLES Final Re sult [address], [place] [address] [facility] [place] [employer] [address] [facility], ([address]) [place] [address] * HIV-1/2 Antigen and Antibodies, Fourth Generation, with Reflexes (09/21/2022 2:45 PM EST) Pathologist [facility] HIV Antigen/Antibody, 4th Generation NON-REAC TIVE NON-REAC TIVE [facility] [place] [employer] Comment: HIV-1 antigen and HIV-1/HIV-2 antibodies were [...] purpose. For additional information please refer to http://education.New.net.CloudOpt/faq/ROX237 (This link is being provided for informational/ educational purposes only.) The performance of this assay has not been clinically validated in patients less than 2 years old. Blood Venous blood specimen / Unknown 09/21/2022 2:45 PM EST 09/21/2022 2:45 PM EST Narrative [facility] - 09/22/2022 6:12 PM EST FASTING:UNKNOWN FASTING: UNKNOWN [facility] LAB BLOOD ORDERABLES Final Re sult [address], [place] [address] [facility] [place] [employer] [facility] [address] [facility], ([address]) [place] [address] * (ABNORMAL) Lipid Panel, Standard (09/21/2022 2:45 PM EST) Cholesterol, Total 164 <200 mg/dL [facility] [place] [employer] [facility] HDL Cholesterol 49(L) > OR = 50 mg/dL [facility] [place] [facility] Triglycerides 70 <150 mg/dL [facility] [place] [facility] LDL Cholesterol 99 mg/dL (calc) [facility] [place] [facility] Comment: Reference range: <100 Desirable range <100 mg/dL for primary prevention; <70 mg/dL for patients with CHD or diabetic patients with > or = 2 CHD risk factors. LDL-C is now calculated using the Darleen calculation, which is a validated novel method providing better accuracy than the Friedewald equation in the estimation of LDL-C. Yobani COKER et al. ASIA. 2013;310(19): 6683-9093 (http://education.[employer]/faq/BSW195) Chol/HDLC Ratio 3.3 <5.0 (calc) [facility] [place] [facility] Non-HDL Cholesterol 115 <130 mg/dL (calc) [facility] [place] [facility] Comment: For patients with diabetes plus 1 major ASCVD risk factor, treating to a non-HDL-C goal of <100 mg/dL (LDL-C of <70 mg/dL) is considered a therapeutic option. Blood Venous blood specimen / Unknown 09/21/2022 2:45 PM EST 09/21/2022 2:45 PM EST Narrative [facility] - 09/22/2022 6:12 PM EST FASTING:UNKNOWN FASTING: UNKNOWN [facility] SUSTAINABILITY COORDINATOR LAB BLOOD ORDERABLES Final Re sult [facility] [address] [facility], [facility], [place] [address] [facility] [place] [employer] [facility] [address] [facility], ([address]) [place] [address] from Last 3 Months or Most Recently Relevant to Health Maintenance [facility] MED[facility] STAND ADULT [facility] Care Teams Supervisor Photoengraving Relationship Specialty Start Date End Date Fannie Ferrell FNP [address] [place] [phone] PCP - General Family Medicine 01/21/22
--- OUTSIDE RECORDS SUMMARY | 2025-07-19 12:35 | XMS_ITS | Encounter Summary ---
Author Organization [facility] Address [address] [place] [address] Phone Care Team Providers Care Dietary Director Name Role Phone Unavailable Primary Care Provider Unavailabl e Encounter Details Date Type Department Care Team (Late st Contact Info) Description 03/31/2017 Conversion Encounter [facility] - [address] [address] Social History Tobacco Use Types Packs/Day Years [...]
--- OUTSIDE RECORDS SUMMARY | 2025-07-19 12:35 | XMS_ITS | Encounter Summary ---
Author Organization [employer] Address [address] [facility] 7t [place] [address] Care Team Providers Care Drywall Foreman Name Role Phone Fannie Ferrell Primary Care Provider [phone] Reason for Visit * Reason Onset Date Comments Call Back Request 05/01/2025 Encounter Details Date Type Department Care Team ([facility] st Contact Info) Description 05/01/[address] [facility] [address] [place] [address] Fannie Ferrell FNP [address] [place], [place] [phone] Call Back Request Social History Tobacco Use [...] housing situation today? I have antwan segal 06/14/[address] you [...] encounter Miscellaneous Notes * Telephone Encounter - JASON Harper - 05/02/2025 6:37 PM EDT Cesar Bhakta, I will be in the office tomorrow morning. When you get a chance, please come check in with me regarding [place] and if there is anything further needed on our end. Fannie Angulo * Telephone Encounter - Livia Santos RN - 05/02/2025 9:57 AM EDT TC to pt to schedule telehealth. Author clarified information yesterday that pt reported. Pt clarified that information she was given from external OBGYN practice is she should speak with her PCP in regards to risk of using anesthesia and bleeding risk before her scheduled appointment with them on 05/03/25 at 11 AM to speak with a nurse and provider. Author advised for pt to speak with external OBGYN practice to see what concerns they have for the PCP before the appt, and advised to ask if documentation is needed from PCP. Advised for pt to send information via [employer] if unable to wait on hold for PAR. Pt verbalized understanding and agreement with plan. Pt verbalized that she reviewed her hcg results and is concerned of gestation, stated unsure when her previous period is due to still breasting feeding. Pt reports not having general anesthesia before and received an epidural during L+D with first child and no reported complications from anesthesia. Pt does report that she has angela of red hair, and does need extra Novocain for dental procedures. * Telephone Encounter - Livia Santos RN [...] like to discuss options. Contact pt at [phone] documented in this encounter Plan of Treatment Not on file documented as of this encounter Procedures Procedure Name Priority Date/Time Associated Diagnosis Comments HCG, TOTAL, QN Routine 05/01/2025 2:11 PM EDT Missed menses documented in this encounter Results * hCG, Total, Quantitative (05/01/2025 2:11 PM EDT) HCG Quantitative 22,658 mIU/mL [facility] Comment:Weeks post LMP Appro ximate hCG(Last Menstrual Period) Range (mIU/ml)3 - 4 weeks 9 - 1304 - 5 weeks 75 - 2,6005 - 6 weeks 850 - 20,8006 - 7 weeks 4000 - 100,2007 - 12 weeks 11,500 - 289,08459 - 16 weeks 18,300 - 137,46782 - 29 weeks (2nd trimester) 1,400 - 53,90622 - 41 weeks (3rd trimester) 940 - [...] EDT 05/01/2025 4:03 PM EDT us Fannie GOMZE LAB BLOOD ORDERABLES Final Res ult [facility] [address] [place] [address] [phone] documented in this encounter Visit Diagnoses Diagnosis Missed menses documented in this encounter Additional Health Concerns Assessment Noted Time PHQ-9 Depression Total Score: 0 10/19/19 24 3:23 PM EST documented as of this encounter Care Teams Drywall Foreman Relationship Specialty Start Date End Date Fannie Ferrell FNP [address] [place] [address] PCP - General Family Medicine 01/21/22 documented as of this encounter
--- OUTSIDE RECORDS SUMMARY | 2025-07-19 12:35 | XMS_ITS | Encounter Summary ---
Author Organization [employer] Address [address] [facility] 7t [place] [address] Care Team Providers Care Chief Dog License Inspector Name Role Phone Fannie Ferrell MANAGER LAB Primary Care Provider [phone] Reason for Visit * Reason Onset Date Comments Med Refill 03/28/2025 Encounter Details Date Type Department Care Team (Late st Contact Info) Description 03/28/2025 Refill [facility] [address] [place] [address] [facility] [address] [place], [place] [phone] Mild persistent asthma without complication Social History [...] documented as of this encounter Care Teams Chief Dog License Inspector Relationship Specialty Start Date End Date Fannie Ferrell FNP [address] [place] [address] PCP - General Family Medicine 01/21/22 documented as of this encounter
--- OUTSIDE RECORDS SUMMARY | 2025-07-19 12:35 | XMS_ITS | Encounter Summary ---
Author Organization [employer] Address [address] [facility] 7t [place] [address] Care Team Providers Care Wooling Machine Operator Name Role Phone Fannie Ferrell Primary Care Provider [phone] Reason for Visit * Reason Onset Date Comments Med Refill 03/28/2025 Encounter Details Date Type Department Care Team (Late st Contact Info) Description 03/28/2025 Refill [facility] MED[facility]INE [address] [place] [address] Fannie Ferrell FNP [address] [place], [place] [phone] History of multiple allergies; Mild persistent asthma [...] documented as of this encounter Care Teams Wooling Machine Operator Relationship Specialty Start Date End Date Fannie Ferrell FNP [address] [place] [phone] PCP - General Family Medicine 01/21/22 documented as of this encounter
--- OUTSIDE RECORDS SUMMARY | 2025-07-19 12:36 | XMS_ITS | Encounter Summary ---
Author Organization [employer] Address [address] [facility] 7[address] [place] [address] Care Team Providers Care Calker Name Role Phone Fannie Ferrell Primary Care Provider [phone] Reason for Visit * Reason Onset Date Comments Nurse Triage 09/27/2024 Encounter Details Date Type Department Care Team ([facility] st Contact Info) Description 09/27/2024 Telephone [facility] MED[facility] [address] [place] [address] Fannie Ferrell FNP [address] [place], [place] [phone] Nurse Triage Social History Tobacco Use Types [...] Please also assist with rescheduling appt. From hoop coiling machine operator: is not on ANY BP medication [...] she states she will probably go to [facility] ED. I will send this note [...] documented as of this encounter Care Teams Calker Relationship Specialty Start Date End Date Fannie Ferrell FNP [address] [place] [phone] PCP - General Family Medicine 01/21/22 documented as of this encounter
--- OUTSIDE RECORDS SUMMARY | 2025-07-19 12:36 | XMS_ITS | Encounter Summary ---
Author Organization [employer] Address [address] [facility] 7t [place] [address] Care Team Providers Care Figure Skater Name Role Phone Fannie Ferrell Primary Care Provider [phone] Reason for Visit * Reason Onset Date Comments Nurse Triage 01/31/2024 Encounter Details Date Type Department Care Team ([facility] st Contact Info) Description 01/31/2024 Telephone [facility] MEDICINE [address] [place] [address] Fannie Ferrell FNP [address] [place], [place] [phone] Nurse Triage Social History Tobacco Use Types [...] machine. Pt is advised to come to [facility] where Provider can check BP and assess Pt status. [facility] hours given today open till 8pm, closed Wed, open Th-F 830am -400pm. Pt agreed with disposition and home care. When partner comes home to take care of baby Ptwill come to [facility]. Protocol Used: Heart Rate and Heartbeat [...] documented as of this encounter Care Teams Figure Skater Relationship Specialty Start Date End Date Fannie Ferrell FNP [address] [place] [phone] PCP - General Family Medicine 01/21/22 Jacey Jane Hot Saw Helper 08/22/23 06/28/24 documented as of this encounter
--- OUTSIDE RECORDS SUMMARY | 2025-07-19 12:36 | XMS_ITS | Encounter Summary ---
Author Organization [employer] Address [address] [facility] [address] [place] [address] Care Team Providers Care Personal Health Coach Name Role Phone Fannie Ferrell Primary Care Provider [phone] Reason for Visit * Reason Onset Date Comments Call Back Request 01/03/2024 Encounter Details Date Type Department Care Team ([facility] Contact Info) Description 01/03/2024 Telephone [facility] [address], [place] [phone] Fannie Ferrell FNP [address] [place], [place] [phone] Call Back Request Social History Tobacco Use [...] discuss any alternatives. Please contact pt at [phone] documented in this encounter Plan of Treatment Not on file documented as of this encounter Visit Diagnoses Not on filedocumented in this encounter Additional Health Concerns Assessment Noted Time PHQ-9 Depression Total Score: 0 10/19/19 24 3:23 PM EST documented as of this encounter Care Teams Personal Health Coach Relationship Specialty Start Date End Date Fannie Ferrell FNP [address] [place] [address] PCP - General Family Medicine 01/21/22 Jacey Jane Cylinder [employer] Operator Helper 08/22/23 06/28/24 documented as of this encounter
[2025-07-19 14:13] LABS: Iron 29 mcg/dL (30-160); Magnesium 2.2 mg/dL (1.6-2.6); Percent Iron Saturation 11 % (15-50); Total Iron Binding Capacity 272 mcg/dL (228-428); Unsaturated Iron Binding 243 ug/dL
[2025-07-19 14:37] LABS: Ferritin 37 ng/mL (10-122)
[2025-07-19 14:46] LABS: Folate 5.6 ng/mL (> or = 4.0); Vitamin B12 266 pg/mL (200-900)
== END 2025-07-19 10:37 | disposition home or self-care (01) ==
LOC: HO.HHCL 10:36
PROVIDERS: PCP Registered Nurse; Visit Provider Registered Nurse
DX: Z86.2 Personal history of diseases of the blood and blood-forming organs and certain disorders involving the immune mechanism (principal)
CPT/HCPCS: 36415; 82306; 82607; 82728; 82746; 83540; 83735; 85025